=== PATIENT | female | born 1940 | race African-American/Black ===

== ENCOUNTER → 2022-09-04 10:24 | Outpatient (BNVA) | payer MEDICARE, SELFPAY | PROVIDERS: PCP Internal Medicine; Visit Provider Student in an Organized Health Care Education/Training Program | DX: M17.0 Bilateral primary osteoarthritis of knee (principal) | CPT/HCPCS: 20610; 99202 ==

== ENCOUNTER → 2022-12-05 10:20 | Outpatient (BNVA) | payer MEDICARE, SELFPAY | PROVIDERS: PCP Internal Medicine; Visit Provider Student in an Organized Health Care Education/Training Program | DX: M17.0 Bilateral primary osteoarthritis of knee (principal) | CPT/HCPCS: 20610; 99212 ==

== ENCOUNTER 2023-03-13 09:36 | Outpatient (AMB) | payer MEDICARE, SELFPAY ==
--- NOTE | 2023-03-13 09:39 | MHC.OFFVIS ---
Intake Vital Signs 03/13/23 09:41 Height 5 ft 2 in Weight 186 lb 4.65 oz BMI 34.1 BP 116/64 Blood Pressure Location Rt brachial Position Sitting Pulse 60 Pulse Source Pulse Oximeter Temp 97.2 F Temp Source Skin Pulse Oximetry (%) 99 Intake Visit Reasons: knee OA Intake Note: Pt seen today for OA follow up. C/o pain bl knees, left is worse. Endoscopy Technician Required: No Accompanied by: Self / Same As Patient Allergies amlodipine Allergy (Unknown, Verified 03/13/23 09:44) Unknown apixaban Allergy (Unknown, Verified 03/13/23 09:44) Unknown ferrous gluconate Allergy (Unknown, Verified 03/13/23 09:44) Unknown lisinopril Allergy (Unknown, Verified 03/13/23 09:44) unkown metoprolol Allergy (Unknown, Verified 03/13/23 09:44) unknown Medication List - Last Reconciled 03/13/23 by Joyce Noonan MD aspirin 325 mg PO DAILY carvedilol 12.5 mg PO BID cyproheptadine 4 mg PO Q6H PRN diclofenac sodium 1% (Voltaren Arthritis Pain) 2 grams topical QID fluticasone propionate 50 mcg/actuation (Flonase Allergy Relief) 1 spray intranasal BID furosemide (Lasix) 20 mg PO DAILY hydroxyzine HCl 25 mg PO TID PRN isosorbide mononitrate ER 60 mg PO DAILY naproxen 250 mg PO BID PRN spironolactone 25 mg PO DAILY HPI HPI Comments History of Present Illness Details 82-year-old female with bilateral knee osteoarthritis returns for follow-up. Patient stated that the left knee Kenalog injection last visit did not provide much relief. Continues to have pain in both knees, worse on the left. Sometimes he feels that her knees would give out on her. States that she is scheduled for knee x-rays tomorrow at her PCP's office. Initial history: This is an 82-year-old female with a past medical history of osteoarthritis who presents for evaluation of bilateral knee pain. Patient states she has had knee pain for many years. Initially the right knee was more affected but recently her left knee became more painful. She stated she used to see a petroleum blending plant operator years ago but does not remember the name. She has had 2 right knee intra-articular steroid injections over the last few years. Last injection was 1-2 years ago. She stated that the 1st injection gave her good relief not so much the 2nd injection. Today she is requesting bilateral knee intra-articular steroid injections. She states that her left knee sometimes gives out. Denies any other joint PFSH Medical History Afib Anemia CHF (congestive heart failure) Constipation Diarrhea DJD (degenerative joint disease) Elevated LFTs Esophageal reflux Hearing loss Hx of varicose veins Hyperlipemia Hypertension Internal hemorrhoid Myocardial infarct Obesity (BMI 35.0-39.9 without comorbidity) Tubular adenoma of colon Uterine cancer Vitamin D deficiency Surgical History H/O: hysterectomy History of esophagogastroduodenoscopy (EGD) Hx of colonoscopy Family History Mother Uterine cancer Father Lung cancer Sister Lung cancer Social History Alcohol intake: current Alcohol intake frequency: a few times a month Alcohol type: wine Patient Tobacco Use Status: Never used Tobacco Review of Systems Const All systems reviewed & are unremarkable except as noted in HPI and below Musc Reports arthralgias and Reports stiffness Physical Exam Vital Signs: Last Vital Signs Temp 97.2 F 03/13/23 09:41 Pulse 60 03/13/23 09:41 BP 116/64 03/13/23 09:41 Pulse Ox 99 03/13/23 09:41 BMI result Body Mass Index 34.1 Const General: cooperative, healthy appearing, comfortable and no acute distress Nutritional Appearance: obese Orientation/consciousness: patient oriented x3 Limitations: no limitations HEENT Head: Yes normocephalic and Yes atraumatic Resp Effort & Inspection: normal respiratory effort and able to speak in complete sentences Neuro General: patient oriented x3 Extrem Other: Bilateral knee crepitus and tenderness to palpation at the medial joint line Left knee warmth and crepitus, some pain with flexion and extension Negative Cornel's test bilaterally Results Reviewed Results Reviewed: Right knee x-ray 01/2022? Right knee, 6 views:? There is extremely severe medial compartment degeneration with extensive sclerosis, subchondral cyst formation and marginal spurring.? There is milder lateral and patellofemoral compartment degeneration.? There is no evidence of joint effusion, soft tissues are unremarkable Left knee 01/2022? There is mild medial and patellofemoral compartment degeneration.? The lateral compartment is intact.? There is some degeneration in the proximal articulation of the fibula with the tibia.? There is moderately large joint effusion.? There is are a few arterial calcifications posteriorly Assessment & Plan Assessment & Plan (1) Bilateral primary osteoarthritis of knee: Code(s): M17.0 - Bilateral primary osteoarthritis of knee Plan: This is an 82-year-old female with bilateral knee OA presents for follow-up. Patient continues to have bilateral knee pain worse on the left. Cortisone injections of both knees do not seem to help anymore. Patient is scheduled for knee x-rays tomorrow at her PCP's office. Will refer patient to orthopedics Orders: Referrals Orthopedics Referral M17.0 - Bilateral primary osteoarthritis of knee Coding Level of Care Code Est Pt Level 3 (53102) Diagnoses Bilateral primary osteoarthritis of knee M17.0
[2023-03-13 09:41] VITALS: BP 116/64; PULSE 60; TEMP 36.2; O2SAT 99; BMI 34.1
== END 2023-03-13 10:59 | disposition home or self-care (01) ==
PROVIDERS: PCP Internal Medicine; Visit Provider Student in an Organized Health Care Education/Training Program
DX: M17.0 Bilateral primary osteoarthritis of knee (principal)
CPT/HCPCS: 99213

== ENCOUNTER → 2023-03-13 09:36 | Outpatient (BNVA) | payer MEDICARE, SELFPAY | PROVIDERS: PCP Internal Medicine; Visit Provider Student in an Organized Health Care Education/Training Program | DX: M17.0 Bilateral primary osteoarthritis of knee (principal) | CPT/HCPCS: 99212 ==

== ENCOUNTER 2023-04-04 07:41 | Outpatient (REF) | payer MEDICARE, SELFPAY ==
--- NOTE | ~2023-04-04 | XR_ITS ---
EXAMINATION: XR BILATERAL KNEES CLINICAL INFORMATION: Reason for Exam M25.562 - Pain in left knee COMPARISON: None TECHNIQUE: 3 views of the bilateral knees FINDINGS: RIGHT KNEE: No acute fracture or dislocation. Advanced degenerative changes of the knee with near complete loss of medial compartment joint spaces and bulky medial compartment and small patellofemoral compartment osteophytes with quadriceps tendon enthesopathy. No joint effusion. Atherosclerotic vascular calcification. LEFT KNEE: No acute fracture or dislocation. Advanced degenerative changes in the with near complete loss of medial compartment joint space and medial and small patellofemoral compartment osteophytes. Moderate suprapatellar joint effusion. Atherosclerotic vascular calcification. XR/XR knee RT 3V IMPRESSION: * No acute osseous abnormality. * Advanced degenerative changes of the knee worst involving the medial compartments bilaterally. Moderate left suprapatellar joint effusion.
--- NOTE | ~2023-04-04 | XR_ITS ---
EXAMINATION: XR BILATERAL KNEES CLINICAL INFORMATION: Reason for Exam M25.562 - Pain in left knee COMPARISON: None TECHNIQUE: 3 views of the bilateral knees FINDINGS: RIGHT KNEE: No acute fracture or dislocation. Advanced degenerative changes of the knee with near complete loss of medial compartment joint spaces and bulky medial compartment and small patellofemoral compartment osteophytes with quadriceps tendon enthesopathy. No joint effusion. Atherosclerotic vascular calcification. LEFT KNEE: No acute fracture or dislocation. Advanced degenerative changes in the with near complete loss of medial compartment joint space and medial and small patellofemoral compartment osteophytes. Moderate suprapatellar joint effusion. Atherosclerotic vascular calcification. XR/XR knee LT 3V IMPRESSION: * No acute osseous abnormality. * Advanced degenerative changes of the knee worst involving the medial compartments bilaterally. Moderate left suprapatellar joint effusion.
== END 2023-04-04 07:42 | disposition home or self-care (01) ==
LOC: HO.HOSX 07:41
PROVIDERS: Visit Provider Orthopaedic Surgery
DX: M17.0 Bilateral primary osteoarthritis of knee (principal)
CPT/HCPCS: 73562; 99202

== ENCOUNTER 2023-04-04 10:55 | Outpatient (AMB) | payer MEDICARE, SELFPAY ==
[2023-04-04 11:11] VITALS: BMI 33.3
--- NOTE | 2023-04-04 11:11 | A.OFFVIS_ITS ---
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 States pain has been presents for 3-4 years and gotten has worsen. Patient states left knee is worse than right. Patient reports left knee gives out, swells and occasional numbness or tingling. Patient has tried injections with no relief in left knee and little relief in the right knee. Patient last injection of left knee was 12/05/22 and bilateral on 09/04/22. The patient has done physical therapy for 12 weeks over the last 6 months which aggravated her pain. She has tried Tylenol and anti-inflammatory medicines which gave her minimal relief. The patient has difficulty walking even short distances because of her pain. At this point her left knee pain is interfering with her activities of daily living and her ability to sleep well through the night. Allergies amlodipine Allergy (Unknown, Verified 04/04/23 11:11) Unknown apixaban Allergy (Unknown, Verified 04/04/23 11:11) Unknown ferrous gluconate Allergy (Unknown, Verified 04/04/23 11:11) Unknown lisinopril Allergy (Unknown, Verified 04/04/23 11:11) unkown metoprolol Allergy (Unknown, Verified 04/04/23 11:11) unknown Medication List - Last Reviewed 04/04/23 by CHAU Sanches aspirin 325 mg PO DAILY carvedilol 12.5 mg PO BID cyproheptadine 4 mg PO Q6H PRN diclofenac sodium 1% (Voltaren Arthritis Pain) 2 grams topical QID fluticasone propionate 50 mcg/actuation (Flonase Allergy Relief) 1 spray intranasal BID furosemide (Lasix) 20 mg PO DAILY hydroxyzine HCl 25 mg PO TID PRN isosorbide mononitrate ER 60 mg PO DAILY naproxen 250 mg PO BID PRN spironolactone 25 mg PO DAILY PFSH Medical History Afib Anemia CHF (congestive heart failure) Constipation Diarrhea DJD (degenerative joint disease) Elevated LFTs Esophageal reflux Hearing loss Hx of varicose veins Hyperlipemia Hypertension Internal hemorrhoid Myocardial infarct Obesity (BMI 35.0-39.9 without comorbidity) Tubular adenoma of colon Uterine cancer Vitamin D deficiency Surgical History H/O: hysterectomy History of esophagogastroduodenoscopy (EGD) Hx of colonoscopy Family History Mother Uterine cancer Father Lung cancer Sister Lung cancer Social History (Updated 04/04/23 @ 11:19 by Sue Lacey [facility]) Alcohol intake: current Alcohol intake frequency: a few times a month Alcohol type: wine Patient Tobacco Use Status: Never used Tobacco Current occupational status: retired Physical Exam Vital Signs: BMI result Body Mass Index 33.3 Const Other: Well-nourished well-developed very friendly female awake alert and oriented x3 in no acute distress Extrem Other: Bilateral lower extremity examination shows good capillary refill, no skin lesions noted, normal sensation light touch Bilateral knee minimal effusion, palpable crepitus range of motion, pain with motion, range of motion from -3 degrees to 115 degrees, no instability Results Reviewed Results Reviewed: X-rays of the patient's bilateral knees show severe joint space narrowing with grade 4 [id number] arthritis, subchondral sclerosis, osteophyte formation, no acute bony abnormalities Assessment & Plan Assessment & Plan (1) Bilateral primary osteoarthritis of knee: Code(s): M17.0 - Bilateral primary osteoarthritis of knee Plan Ms. Garcia presents with progressively worsening bilateral knee pains, left greater than right, due to end-stage degenerative joint disease. I had a lengthy discussion with the patient regarding the treatment options. This point she has failed continued non operative treatments. The risks and benefits of left total knee replacement surgery were discussed at length with the patient. We had a discussion regarding implant in bearing options. We had a detailed discussion of the advantages and limitations of the specific implant designs, materials and bearing surfaces. All questions were answered to the patient's satisfaction. The patient wishes to proceed with surgery. Because the patient's symptoms are severe and intractable we will schedule surgery for as soon as possible. Coronavirus precautions will be taken. I will see the patient back 1 week prior to her surgery to answer any final questions that she might have. Feel free to call me at any time should questions regarding her orthopedic management arise. Thank you very much for asking me to see this very friendly patient. I spent 22 minutes in reviewing the patient's records and imaging studies, seeing the patient and documenting in the medical record. Orders: Orders XR knee LT 3V Today M25.562 - Pain in left knee XR knee RT 3V Today M25.561 - Pain in right knee Coding Level of Care Code New Pt Level 2 (80349) Diagnoses Bilateral primary osteoarthritis of knee M17.0
== END 2023-04-04 11:46 | disposition home or self-care (01) ==
PROVIDERS: PCP Internal Medicine; Visit Provider Orthopaedic Surgery
DX: M17.0 Bilateral primary osteoarthritis of knee (principal)
CPT/HCPCS: 99202

== ENCOUNTER → 2023-04-24 08:47 | Outpatient (BNVA) | payer MEDICARE, SELFPAY | PROVIDERS: PCP Internal Medicine; Visit Provider Orthopaedic Surgery ==

== ENCOUNTER 2023-05-23 09:47 | Outpatient (AMB) | payer MEDICARE, SELFPAY ==
--- NOTE | 2023-05-23 10:27 | A.OFFVIS_ITS ---
Intake Intake Visit Reasons: Preop- LT TKA 05/27/23 Intake Note: Hannah 82 yr old female presents today for evaluation of Bilateral osteoarthritis knee pain. States pain has been presents for 3-4 years and gotten has worsen. Patient states left knee is worse than right. Patient reports left knee gives out, swells and occasional numbness or tingling. Patient has tried injections with no relief in left knee and little relief in the right knee. Patient last injection of left knee was 12/05/22 and bilateral on 09/04/22. The patient has done physical therapy for 12 weeks over the last 6 months which aggravated her pain. She has tried Tylenol and anti-inflammatory medicines which gave her minimal relief. The patient has difficulty walking even short distances because of her pain. At this point her left knee pain is interfering with her activities of daily living and her ability to sleep well through the night. Allergies amlodipine Allergy (Unknown, Verified 05/23/23 10:27) Unknown apixaban Allergy (Unknown, Verified 05/23/23 10:27) Unknown ferrous gluconate Allergy (Unknown, Verified 05/23/23 10:27) Unknown lisinopril Allergy (Unknown, Verified 05/23/23 10:27) Swelling metoprolol Allergy (Unknown, Verified 05/23/23 10:27) unknown broccoli Allergy (Verified 05/23/23 10:27) Constipation tomato Allergy (Verified 05/23/23 10:27) Itching Medication List - Last Reconciled 05/23/23 by Thomas Oconnell MD aspirin 325 mg PO DAILY carvedilol 12.5 mg PO BID furosemide (Lasix) 20 mg PO DAILY isosorbide mononitrate ER 60 mg PO DAILY spironolactone 25 mg PO DAILY walker Folding front wheeled walker [facility] Medical History Hx of transfusion of packed red blood cells Hx of varicose veins Internal hemorrhoid DJD (degenerative joint disease) Vitamin D deficiency Esophageal reflux Hearing loss Constipation Hyperlipemia Elevated LFTs Uterine cancer Myocardial infarct Tubular adenoma of colon Diarrhea Anemia Obesity (BMI 35.0-39.9 without comorbidity) Afib Hypertension CHF (congestive heart failure) Surgical History History of esophagogastroduodenoscopy (EGD) Hx of colonoscopy H/O: hysterectomy Family History Mother Uterine cancer Father Lung cancer Sister Lung cancer Social History Are you a primary district manager primary care sales to a significant other at home: No Do you presently have visiting nurse or other home services: Yes (PCT) Alcohol intake: current Alcohol intake frequency: holidays/special occasions only Alcohol type: wine Patient Tobacco Use Status: Never used Tobacco Current occupational status: retired Physical Exam Const Other: Well-nourished well-developed very friendly female awake alert and oriented x3 in no acute distress Lungs clear to auscultation bilaterally with symmetric expansion Cardiovascular exam regular rate and rhythm Abdominal exam is soft nontender nondistended Extrem Other: Bilateral lower extremity examination shows good capillary refill, no skin lesions noted, normal sensation light touch Left knee examination shows a minimal effusion, palpable crepitus with range of motion, pain with range of motion, range of motion from -3 degrees to 115 degrees, no instability Results Reviewed Results Reviewed: X-rays of the patient's left knee show severe joint space narrowing with grade 4 [id number] arthritis, subchondral sclerosis, osteophyte formation, no acute bony abnormalities Assessment & Plan Assessment & Plan (1) Arthritis of left knee: Code(s): M17.12 - Unilateral primary osteoarthritis, left knee Plan: Ms. Garcia presents with left knee pain due to end-stage degenerative joint disease. I had a lengthy discussion with the patient regarding the treatment options. At this point she has failed continued non operative treatments. The risks and benefits of left total knee replacement surgery were discussed at length with the patient. Patient wishes to proceed with surgery. donor services manager will be consulted following her surgery for home physical therapy and nursing versus possible inpatient rehabilitation. I will see the patient back 2-3 weeks following her surgery for her 1st postoperative appointment. The patient will follow-up as instructed. Feel free to call me at any time should questions regarding her orthopedic management arise. I spent 22 minutes in reviewing the patient's records and imaging studies, seeing the patient and documenting in the medical record. Coding Level of Care Code Est Pt Level 2 (38551) Diagnoses Arthritis of left knee M17.12
== END 2023-05-23 10:48 | disposition home or self-care (01) ==
PROVIDERS: PCP Internal Medicine; Visit Provider Orthopaedic Surgery
DX: M17.12 Unilateral primary osteoarthritis, left knee (principal)
CPT/HCPCS: 99212

== ENCOUNTER → 2023-05-23 09:47 | Outpatient (BNVA) | payer MEDICARE, SELFPAY | PROVIDERS: PCP Internal Medicine; Visit Provider Orthopaedic Surgery | DX: M17.12 Unilateral primary osteoarthritis, left knee (principal) | CPT/HCPCS: 99212 ==

== ENCOUNTER 2023-05-27 06:06 | Inpatient (IN) | payer OTHER, SELFPAY ==
[2023-05-22 11:43] VITALS: BP 141/87; PULSE 59; RESP 16; O2SAT 98; BMI 33.7
--- NOTE | 2023-05-22 12:24 | P.CONAN_ITS ---
Documented by User: Jaylyn Garza NP 05/24/23 08:44 HPI - Anesthesia Eval Consult details Narrative: 82yo F for Left Knee Replacement Total Medically cleared Cardiac cleared (Office visit 01/2023) No recent illness No CP/SOB with minimal activity r/t pain CHF - no periph edema, no orthopnea Afib - aspirin only PMFSH Active Problems Active Problems: All Active Problems (Updated 05/22/23 @ 11:30 by Jill Denton RN) Left knee pain (Acute) Right knee pain (Acute) Bilateral primary osteoarthritis of knee (Acute) Past Medical History Medical History Hx of transfusion of packed red blood cells Hx of varicose veins Internal hemorrhoid DJD (degenerative joint disease) Vitamin D deficiency Esophageal reflux Hearing loss Constipation Hyperlipemia Elevated LFTs Uterine cancer Myocardial infarct Tubular adenoma of colon Diarrhea Anemia Obesity (BMI 35.0-39.9 without comorbidity) Afib Hypertension CHF (congestive heart failure) Family History Family History Mother Uterine cancer Father Lung cancer Sister Lung cancer Family history of problems with anesthesia: No Surgical History Surgical History History of esophagogastroduodenoscopy (EGD) Hx of colonoscopy H/O: hysterectomy History of Problems with Anesthesia: No Social History Social History Are you a primary health care marketing manager to a significant other at home: No Do you presently have visiting nurse or other home services: Yes (PCT) Alcohol intake: current Alcohol intake frequency: holidays/special occasions only Alcohol type: wine Patient Tobacco Use Status: Never used Tobacco Use of substances other than those prescribed or required for medical reasons: No Have you been hit, kicked, punched, or otherwise hurt by someone within the past year? If so, by whom?: No Are you DNR?: No Advance Directives: No Advance Directives Information Provided: No Advance Directives on File: No Recently lost weight without trying: No Eating poorly because of decreased appetite: No Nutrition Risks: No Nutritional Risk Patient : No : No Poor oral hygiene: No Current occupational status: retired Meds Allergies Allergy/AdvReac Type Severity Reaction Status Date / Time amlodipine Allergy Unknown Unknown Verified 05/23/23 10:27 apixaban Allergy Unknown Unknown Verified 05/23/23 10:27 ferrous gluconate Allergy Unknown Unknown Verified 05/23/23 10:27 lisinopril Allergy Unknown Swelling Verified 05/23/23 10:27 metoprolol Allergy Unknown unknown Verified 05/23/23 10:27 broccoli Allergy Constipatio Verified 05/23/23 10:27 n tomato Allergy Itching Verified 05/23/23 10:27 Active Medications: Current Medications Cefazolin Sodium/Dextrose (Ancef) 2 gm in 50 mls @ 100 mls/hr IV PREOP ONE Stop: 05/27/23 03:38 Home Medications Medication Instructions Recorded Confirmed Last Taken Type aspirin 325 mg tablet 325 mg PO DAILY 08/15/22 05/23/23 05/19/23 History carvedilol 12.5 mg tablet 12.5 mg PO BID 08/15/22 05/23/23 05/27/23 History furosemide 40 mg tablet (Lasix) 20 mg PO DAILY 08/15/22 05/23/23 05/26/23 History isosorbide mononitrate 60 mg 60 mg PO DAILY 08/15/22 05/23/23 05/27/23 History tablet,extended release 24 hr spironolactone 25 mg tablet 25 mg PO DAILY 08/15/22 05/23/23 05/26/23 History Exam Exam Date and Time: May 22, 2023 1224 Height,Weight and Vital Signs: Height 5 ft 2 in Weight 83.461 kg Last Vital Signs Pulse 59 05/22/23 11:43 Resp 16 05/22/23 11:43 BP 141/87 H 05/22/23 11:43 Pulse Ox 98 05/22/23 11:43 O2 Del Method Room Air 05/22/23 11:43 Pertinent Lab Results Pertinent Lab Results: Labs 02/2023 WBC 6.5 Hgb 10.9 (L) Hct 35.1 Plt 267 K 4.6 Na 140 CO2 27 Cl 108 BUN 18 Creat 1.33 (H) Narrative Narrative: EKG 01/2023 NSR @ 60 LAD Volt criteria for LVH T wave abn, consider lateral ischemia ECHO 12/2022 LV size is nml. LV wall thickness is mildly increased. LV systolic function is nml. LVEF 60-65% No definite regional WMA Unable to assess diastolic function d/t afib LV filling pressures are indeterminate Aortic valve is trileaflet and nml in structure and function. No aortic stenosis or insufficiency Aortic root is nml in size Mild dilating of asc aorta @ 4.1cm RV size and function appears grossly nml No pericardial effusion Airway Mallampati Class: II TM Dist: >3cm Neck ROM: Full Loose/Missing/Broken Teeth: No Heart: RRR Lungs: CTAB Assessment and Plan Assessment Anesthesia Assessment: Anesthesia Plan Discussed and PAT Visit Final Anesthetic Review Family History of Problems with Anesthesia: No History of Problems with Anesthesia: No Documented by User: Chastity March MD 05/27/23 08:25 [facility] Past Medical History Medical History Hx of transfusion of packed red blood cells Hx of varicose veins Internal hemorrhoid DJD (degenerative joint disease) Vitamin D deficiency Esophageal reflux Hearing loss Constipation Hyperlipemia Elevated LFTs Uterine cancer Myocardial infarct Tubular adenoma of colon Diarrhea Anemia Obesity (BMI 35.0-39.9 without comorbidity) Afib Hypertension CHF (congestive heart failure) Family History Family History Mother Uterine cancer Father Lung cancer Sister Lung cancer Surgical History Surgical History History of esophagogastroduodenoscopy (EGD) Hx of colonoscopy H/O: hysterectomy Social History Social History Are you a primary health care marketing manager to a significant other at home: No Do you presently have visiting nurse or other home services: Yes (PCT) Alcohol intake: current Alcohol intake frequency: holidays/special occasions only Alcohol type: wine Patient Tobacco Use Status: Never used Tobacco Use of substances other than those prescribed or required for medical reasons: No Have you been hit, kicked, punched, or otherwise hurt by someone within the past year? If so, by whom?: No Are you DNR?: No Advance Directives: No Advance Directives Information Provided: No Advance Directives on File: No Recently lost weight without trying: No Eating poorly because of decreased appetite: No Nutrition Risks: No Nutritional Risk Patient : No : No Poor oral hygiene: No Current occupational status: retired Meds Allergies Allergy/AdvReac Type Severity Reaction Status Date / Time amlodipine Allergy Unknown Unknown Verified 05/23/23 10:27 apixaban Allergy Unknown Unknown Verified 05/23/23 10:27 ferrous gluconate Allergy Unknown Unknown Verified 05/23/23 10:27 lisinopril Allergy Unknown Swelling Verified 05/23/23 10:27 metoprolol Allergy Unknown unknown Verified 05/23/23 10:27 broccoli Allergy Constipatio Verified 05/23/23 10:27 n tomato Allergy Itching Verified 05/23/23 10:27 Home Medications Medication Instructions Recorded Confirmed Last Taken Type aspirin 325 mg tablet 325 mg PO DAILY 08/15/22 05/23/23 05/19/23 History carvedilol 12.5 mg tablet 12.5 mg PO BID 08/15/22 05/23/23 05/27/23 History furosemide 40 mg tablet (Lasix) 20 mg PO DAILY 08/15/22 05/23/23 05/26/23 History isosorbide mononitrate 60 mg 60 mg PO DAILY 08/15/22 05/23/23 05/27/23 History tablet,extended release 24 hr spironolactone 25 mg tablet 25 mg PO DAILY 08/15/22 05/23/23 05/26/23 History Assessment and Plan Assessment Anesthesia Assessment: Chart Reviewed Final Anesthetic Review ASA Class: II Final Preanesthetic Review: No Changes in Pt Med Stat, Meds/Allgs Chart Reviewed, Consent Obtained/Reviewed and Anes Risks/Benef Reviewed Patient Risk: Low Procedure Risk: Intermediate Anesthetic Plan Anesthetic Plan: Spinal and Regional Block Disposition: Standard PACU
[2023-05-22 14:25] LABS: MRSA Nasal PCR NEGATIVE (Negative); SA Nasal PCR NEGATIVE (Negative)
[2023-05-27] VITALS (12 sets, daily range): BP systolic 87–152; BP diastolic 49–85; PULSE 46–69; RESP 16–20; TEMP 36.6–36.9; O2SAT 96–98; BMI 33.6
--- NOTE | ~2023-05-27 | XR_ITS ---
EXAMINATION: XR KNEE, LEFT CLINICAL INFORMATION: Status post left knee arthroplasty. COMPARISON: Left knee radiographs dated 04/04/2023. TECHNIQUE: AP and lateral views of the left knee. FINDINGS: Prosthetic components of the total knee arthroplasty are appropriately aligned. No periprosthetic fracture. Gas from recent surgery is present in the joint and surrounding soft tissues. A joint effusion is present. XR/XR knee LT 2V IMPRESSION: Appropriate alignment of the left total knee arthroplasty.
--- NOTE | 2023-05-27 10:29 | P.BOP_ITS ---
Brief Operative Note Date of Service: 05/27/23 Pre-op diagnosis: Left knee degenerative joint disease Post-op diagnosis: same Procedure: Left total knee arthroplasty Implants: Andressa Triathlon cemented posterior stabilized total knee arthroplasty with a femoral component size 2 left, tibial component size 2, polyethylene liner size 2 with 10 mm of thickness, a symmetric patellar component size 29 with 8 mm of thickness Surgeon: Thomas Oconnell MD Anesthesia: spinal Was an Technology And Engineering Teacher used for this Procedure?: Yes Technology And Engineering Teacher: Shania Key Estimated blood loss (mL): 200 Tourniquet time (min): 0 Condition: stable Disposition: PACU
--- NOTE | 2023-05-27 10:31 | P.OP_ITS ---
Operative Note Operative Note Date of Service: 05/27/23 Narrative: After the patient was identified as Sahra Garcia and their left knee was initialed by myself the patient was brought to the holding area where a left leg nerve block was performed by the anesthesiologist in routine fashion. The patient was then brought to the operating room where conscious sedation and spinal anesthesia were performed by the anesthesiologist in routine fashion The patient was given 2 g of IV Ancef preoperatively for infection prophylaxis. The patient's left lower extremity was prepped and draped in sterile fashion. A formal time-out was completed. The patient's left knee was placed onto a small bump to produce 30? of knee flexion during exposure. A #10 scalpel blade was used to make a midline incision extending 1 handbreadth proximal and distal to the patella. A second #10 scalpel blade was used to dissect the subcutaneous tissues down to the extensor mechanism. The subcutaneous flaps were maintained as thick as possible. A medial parapatellar arthrotomy was then performed using a #10 scalpel blade. The arthrotomy was begun just medial to the patellar tendon. The arthrotomy was continued 1 cm medial to the patella and then 5 mm into the medial aspect of the quadriceps tendon. The infrapatellar fat pad was partially excised to help with exposure. The soft tissue retinaculum was raised one-half of the way around the medial aspect of the proximal tibia. The patella was everted and the knee was flexed to 90?. There was no injury to the patellar tendon or its insertion onto the tibial tubercle. A drill bit was introduced into the distal aspect of the femur with a starting point 1 cm anterior to the origin of the posterior cruciate ligament. The intramedullary alignment zana was put into place. The distal alignment guide was set for a 5 degree valgus cut. The distal cutting block was put into place and was held with 4 pins. The intramedullary alignment zana was removed. Soft tissues were retracted in the distal femoral cut was made using a sagittal saw. The distal aspect of the femur measured to be a size 2 left component. Two drill holes were placed into the distal aspect of the femur marking 3? of external rotation. The distal cutting block was impacted into place and was held with 2 pins. Soft tissues were retracted and the 4 distal femoral cuts were made using a sagittal saw. Final notching and drilling of the distal aspect of the femur were performed in routine fashion. The trial femoral component was impacted into place. The knee was taken through a full range of motion. The patella tracked well. The patella was everted and the knee was flexed to 90?. The trial component was removed and our attention was directed to the proximal tibia. The medial and lateral menisci were removed using a #10 scalpel blade. A small rim of the medial meniscus was left intact to help prevent injury to the medial collateral ligament. A drill bit was then introduced into the proximal tibia with a starting point midway from medial to lateral and one-third of the way posteriorly. The intramedullary alignment zana was put into place. The proximal tibial cutting guide was placed over the alignment zana in line with the 2nd toe. The guide was held in place using 3 pins. The intramedullary alignment zana was removed. Soft tissues were retracted and the proximal tibial cut was made using a sagittal saw. The proximal tibia measured to be a size 2 component. The tibial tray was put into place with a 10 mm liner. The femoral component was impacted into place. The knee was taken through a full range of motion. There was full flexion and full extension. There was no instability with varus or valgus stress testing with the knee in flexion or extension. The patella tracked well with no medially directed force. The rotation of the tibial tray was marked using electrocautery with the knee in extension. The patella was everted and the knee was flexed to 90?. All trial components were removed. The tibial tray was placed onto the proximal tibia in line with the electrocautery aguilar. The tray was held in place using 3 pins. Final broaching of the proximal tibia was performed in routine fashion. The trial liner and trial femoral component were put into place. The knee was brought into extension and our attention was directed to the patella. The patella measured 25 mm in thickness. The patellar resection guide was set for a 10 mm resection. Soft tissues were retracted and the patella cut was made using a sagittal saw. The remaining patella measured 15 mm in thickness. The undersurface of the patella was richard ured to be a size 29 symmetric component. Three drill holes were placed into the undersurface of the patella in routine fashion. The trial component was put into place. The knee was taken through a full range of motion. The patella tracked well. The patella was everted and the knee was flexed to 90?. All trial components were removed. The knee was once again brought into extension and placed onto a small bump. The knee joint was irrigated with copious amounts of normal saline solution via pulse lavage while the cement was mixed. The patella was everted and the knee was flexed to 90?. A small amount of cement was placed along the posterior aspects of the tibial and femoral components. Cement was then pressurized into the proximal tibia. The tibial component was impacted into place. Any excess cement was removed. The polyethylene liner was then impacted into place. Cement was then pressurized into the distal aspect of the femur. A small amount of cement was placed into the intramedullary canal to help reduce bleeding. The femoral component was impacted into place. Any excess cement was removed. The knee was then brought into extension. Cement was pressurized into the undersurface of the patella. The patellar component was put into place and was held with a patella clamp. Any excess cement was removed. Once the cement had hardened the patellar clamp was removed. The knee was taken through a full range of motion. There was full flexion and extension. There was no instability with varus or valgus stress testing with the knee in flexion or extension. The patella tracked well with no medially directed force. The knee joint was irrigated with copious amounts of normal saline solution via pulse lavage. Any significant bleeding vessels were coagulated. The patient's left knee was placed onto a small bump. The arthrotomy was closed with #2 Ethibond [id number] interrupted suture as well as #1 Vicryl [id number] interrupted suture. The wound was once again irrigated. The subcutaneous tissues were closed with 0 Vicryl and 2-0 Vicryl interrupted sutures. The skin was closed with skin дмитрий. Dry sterile dressing and Derek bandages were placed over the patient's left knee. The patient was awake and alert. The patient was transferred to the recovery room in stable condition.
--- NOTE | 2023-05-27 12:36 | PHA.MEDREC ---
Pharmacy Consult ? Medication Reconciliation Pharmacy has reviewed the medication reconciliation.
--- NOTE | 2023-05-27 13:01 | HO.PM.IMCN ---
History of Present Illness Data of Consult Service Date: 05/27/23 Primary Care Provider: Fco Means MD [facility] Reason for consult: Medical management Patient is an 82-year-old female with a PMH significant for osteoarthritis of bilateral knees, CHF unspecified, HTN, and hx of uterine cancer who was admitted to the hospital under orthopedics for left TKA. POD0. Pt currently has no acute medical complaints. Denies any left leg or knee pain, numbness, or tingling. Denies chest pain/pressure, palpitations. No N/V, fever, chills, abdominal pain. Pt has a remote hx of uterine cancer 15 years ago. Patient was also diagnosed with heart failure 5-6 years ago. Patient has been taking diuretics since then with no additional hospitalizations for CHF. Denies SOB, cough. No lower leg edema. Vital signs stable. Review of Systems Review of Systems: Patient denies left leg early pain Has no acute medical concerns at this time [facility] Medical History Hx of transfusion of packed red blood cells Hx of varicose veins Internal hemorrhoid DJD (degenerative joint disease) Vitamin D deficiency Esophageal reflux Hearing loss Constipation Hyperlipemia Elevated LFTs Uterine cancer Myocardial infarct Tubular adenoma of colon Diarrhea Anemia Obesity (BMI 35.0-39.9 without comorbidity) Afib Hypertension CHF (congestive heart failure) Family History Mother Uterine cancer Father Lung cancer Sister Lung cancer Surgical History History of esophagogastroduodenoscopy (EGD) Hx of colonoscopy H/O: hysterectomy Social History Household Members: Spouse Housing: House Are you a primary day care home provider to a significant other at home: No Do you presently have visiting nurse or other home services: Yes ([employer] a few times a week) Alcohol intake: current Alcohol intake frequency: holidays/special occasions only Alcohol type: wine Patient Tobacco Use Status: Never used Tobacco Use of substances other than those prescribed or required for medical reasons: No Have you been hit, kicked, punched, or otherwise hurt by someone within the past year? If so, by whom?: No Do you feel safe in your current relationship?: Yes Is there a partner from a previous relationship who is making you feel unsafe now?: No Are you made to feel afraid or neglected: No Are you DNR?: No Advance Directives: No Advance Directives Information Provided: No Advance Directives on File: No Do you have thoughts of harming others: None Do you have a plan to hurt others: No Plan Recently lost weight without trying: No Eating poorly because of decreased appetite: No Nutrition Risks: No Nutritional Risk Patient : No : No Poor oral hygiene: No Current occupational status: retired Meds Allergies Allergy/AdvReac Type Severity Reaction Status Date / Time amlodipine Allergy Unknown Unknown Verified 05/23/23 10:27 apixaban Allergy Unknown Unknown Verified 05/23/23 10:27 ferrous gluconate Allergy Unknown Unknown Verified 05/23/23 10:27 lisinopril Allergy Unknown Swelling Verified 05/23/23 10:27 metoprolol Allergy Unknown unknown Verified 05/23/23 10:27 broccoli Allergy Constipatio Verified 05/23/23 10:27 n tomato Allergy Itching Verified 05/23/23 10:27 Active Medications: Current Medications Acetaminophen (Acetaminophen 325 Mg Tablet) 650 mg PO Q6H PRN PRN Reason: Pain, Mild (Pain Scale 1-3) Aspirin (Aspirin 325 Mg Tablet) 325 mg PO Q12H [facility] Carvedilol (Carvedilol 12.5 Mg Tablet) 12.5 mg PO BID [facility]; Protocol Celecoxib (Celecoxib 200 Mg Capsule) 200 mg PO BID [facility] Docusate Sodium (Docusate Sodium 100 Mg Capsule) 100 mg PO BID [facility] Furosemide (Furosemide 20 Mg Tablet) 20 mg PO DAILY [facility]; Protocol Hydromorphone HCl (Hydromorphone Hcl 0.5 Mg/0.5 Ml Syringe) 0.25 mg IVPUSH Q4H PRN; Protocol PRN Reason: Pain, Severe (Pain Scale 7-10) Hydromorphone HCl (Hydromorphone Hcl 0.5 Mg/0.5 Ml Syringe) 0.5 mg IVPUSH Q4H PRN; Protocol PRN Reason: Pain, Severe (Pain Scale 7-10) Lactated Ringer's (Lr) 1,000 mls @ 100 mls/hr IVCONT .Q10H [facility] Last Admin: 05/27/23 12:30 Dose: Not Given Lactated Ringer's (Lr) 1,000 mls @ 100 mls/hr IVCONT .Q10H [facility] Cefazolin Sodium/Dextrose (Ancef) 2 gm in 50 mls @ 100 mls/hr IV Q8H [facility] Stop: 05/28/23 13:59 Isosorbide Mononitrate (Isosorbide Mononitrate 60 Mg Tab.Er.24h) 60 mg PO DAILY [facility]; Protocol Ondansetron HCl (Ondansetron Hcl 4 Mg/2 Ml Vial) 4 mg IVPUSH Q8H PRN PRN Reason: Nausea and Vomiting Oxycodone HCl (Oxycodone Hcl Immed Release 5 Mg Tablet) 5 mg PO Q4H PRN PRN Reason: Pain, Moderate(Pain Scale 4-6) Oxycodone HCl (Oxycodone Hcl Immed Release 5 Mg Tablet) 10 mg PO Q4H PRN PRN Reason: Pain, Moderate(Pain Scale 4-6) Sodium Chloride (0.9 % Sodium Chloride Flush 3 Ml Syringe) 3 ml IVFLUSH QSHIFT [facility] Spironolactone (Spironolactone 25 Mg Tablet) 25 mg PO DAILY [facility]; Protocol Home Medications Medication Instructions Recorded Confirmed Last Taken Type aspirin 325 mg tablet 325 mg PO DAILY 08/15/22 05/23/23 05/19/23 History carvedilol 12.5 mg tablet 12.5 mg PO BID 08/15/22 05/23/23 05/27/23 History furosemide 40 mg tablet (Lasix) 20 mg PO DAILY 08/15/22 05/23/23 05/26/23 History isosorbide mononitrate 60 mg 60 mg PO DAILY 08/15/22 05/23/23 05/27/23 History tablet,extended release 24 hr spironolactone 25 mg tablet 25 mg PO DAILY 08/15/22 05/23/23 05/26/23 History Physical Exam Vital Signs and Narrative: Vital Signs: Last Vital Signs Temp 97.8 F 05/27/23 12:29 Pulse 52 05/27/23 12:29 Resp 18 05/27/23 12:29 BP 109/62 05/27/23 12:29 Pulse Ox 98 05/27/23 12:29 O2 Del Method Room Air 10/02/23 12:29 BMI result Body Mass Index 33.6 General: AOx3, no acute distress Resp: CTA bilaterally CVS: S1, S2, RRR GI: +BS, NT, no distention Skin: No rash Neuro: Cranial nerves II-XII grossly intact bilaterally. Motor grossly intact bilaterally Extremities: No edema. Left knee wrapped in clean dressing. Psych: Appropriate affect Results Imaging Radiologist's Impressions: Impressions Knee X-Ray 05/27/23 11:02 IMPRESSION: Appropriate alignment of the left total knee arthroplasty. Assessment and Plan (1) S/P total knee arthroplasty: Qualifiers: Laterality: left Qualified Code(s): Z96.652 - Presence of left artificial knee joint Status: Acute Plan Patient is an 82-year-old female with a PMH significant for osteoarthritis of bilateral knees, CHF unspecified, HTN, and hx of uterine cancer who was admitted to the hospital under orthopedics for left TKA. POD0. Pt currently has no acute medical complaints. Left TKA Plan as per orthopedics CHF, unspecified Not in acute exacerbation No acute exacerbation in past 5-6 years Continue furosemide, spironolactone, isosorbide mononitrate HTN Acceptable control on current therapies Continue carvedilol Thank you for allowing us to participate in the care of this patient. Signing off at this time. Please let us know if there are any acute complaints or questions. Time Spent With Patient Time: Total time managing care of this patient today ____ minutes.
[2023-05-27] MEDS: Lactated Ringers 1,000 ML 100 ML IVCONT (13:27)
[2023-05-27] MEDS: ceFAZolin Sodium/Dextrose,Iso 2 GM/50 ML PIGGYBACK IV ×2 (13:27→20:46)
[2023-05-27] MEDS: HYDROmorphone HCl 0.5 MG/0.5 ML SYRINGE 0.25 MG IVPUSH (16:38)
[2023-05-27] MEDS: Aspirin 325 MG TABLET PO (18:25)
[2023-05-27] MEDS: Celecoxib 200 MG CAPSULE PO (20:45)
[2023-05-27] MEDS: Docusate Sodium 100 MG CAPSULE PO (20:45)
[2023-05-27] MEDS: carvediloL 12.5 MG TABLET PO (20:45)
[2023-05-27] MEDS: HYDROmorphone HCl 0.5 MG/0.5 ML SYRINGE IVPUSH (20:46)
[2023-05-28] MEDS: Lactated Ringers 1,000 ML 100 ML IVCONT ×3 (00:10→17:09)
[2023-05-28] MEDS: oxyCODONE HCl Immed Release 5 MG TABLET PO (01:54)
[2023-05-28 04:00] VITALS: BP 162/84; PULSE 66; RESP 16; TEMP 36.6; O2SAT 96
[2023-05-28] MEDS: Aspirin 325 MG TABLET PO ×2 (06:17→17:12)
[2023-05-28] MEDS: oxyCODONE HCl Immed Release 5 MG TABLET 10 MG PO ×2 (06:18→14:50)
[2023-05-28] MEDS: ceFAZolin Sodium/Dextrose,Iso 2 GM/50 ML PIGGYBACK IV (06:19)
[2023-05-28 06:45] LABS: MANUAL DIFF FLAG NO
[2023-05-28 07:07] LABS: Basophils Percent Auto 0.1 % (0-2); Eosinophils Absolute Auto 0.1 X10*3/uL (0.0-0.4); Eosinophils Percent Auto 1.3 % (0-4); Hematocrit 28.6 % (37.0-47.0); Hemoglobin 9.3 g/dl (12.0-16.0); Imm Gran Abs Auto 0.06 X10*3/uL (0.00-0.03); Imm Gran Pct Auto 0.6 % (0.0-0.4); Lymphocytes Absolute Auto 1.9 X10*3/uL (1.2-4.9); Lymphocytes Percent Auto 17.7 % (20-40); Mean Corpuscular HGB Conc 32.5 g/dl (31.0-35.0); Mean Corpuscular Hemoglobin 31.4 pg (27.0-33.0); Mean Corpuscular Volume 96.6 fL (80.0-98.0); Mean Platelet Volume 11.3 fL (9.4-12.3); Monocytes Absolute Auto 1.5 X10*3/uL (0.1-1.2); Monocytes Percent Auto 13.8 % (2-11); Neutrophils Percent Auto 66.5 % (45-73); Platelet Count 213 X10*3/uL (160-400); Red Blood Count 2.96 X10*6/uL (4.20-5.50); Red Cell Distribution Width 11.8 % (11.0-16.0); White Blood Count 10.5 X10*3/uL (4.8-10.8)
[2023-05-28 07:12] LABS: Anion Gap 11 (12-20); Blood Urea Nitrogen 19 mg/dL (9-16); Carbon Dioxide 21 mmol/L (22-29); Chloride 106 mmol/L (96-108); Creatinine Clr Calc Pharmacy 40.1; Estimated Glomerular Filt Rate 48; Glucose Fasting 140 mg/dL (60-99); Potassium 4.2 mmol/L (3.3-5.1); Sodium 134 mmol/L (135-145)
[2023-05-28 07:28] VITALS: BP 144/82; PULSE 92; RESP 17; TEMP 36.7; O2SAT 95
--- NOTE | 2023-05-28 07:44 | P.PNOP_ITS ---
Subjective Subjective Date of Service: 05/28/23 Interval history: POD1 s/p LTT TORRES no overnight events c/o itching from the medication denies cp,sob, palpitations Physical Exam Vital Signs: Vital Signs: Last Vital Signs Temp 98.0 F 05/28/23 07:28 Pulse 92 05/28/23 07:28 Resp 17 05/28/23 07:28 BP 126/66 05/28/23 07:28 Pulse Ox 95 05/28/23 07:28 O2 Del Method Nasal Cannula 05/28/23 07:28 O2 Flow Rate 3.0 05/28/23 07:28 BMI result Body Mass Index 33.6 Const: General: cooperative, healthy appearing and no acute distress Resp: Effort & Inspection: normal respiratory effort and able to speak in complete sentences Cardio: Rate: regular rate Peripheral pulses: Peripheral pulses 2+ throughout GI: Palpation (GI): Soft to palpation Skin: General skin exam: no rashes or lesions noted Extrem: Other: bandage clean dry and intact. Shantal intact. No erythema or effusion. Calf supple nontender. Neurovascularly intact. Procedures Date of Service Date of Service: 05/28/23 Progress Note: A&P Assessment and plan (1) History of total left hip arthroplasty: Status: Acute Plan * Continue pain mgmnt * Begin Aspirin for dvt ppx * begin PT for LT JOSE * Dispo planning-Pending PT eval, pain mgmnt Time Spent With Patient Time: Total time managing care of this patient today ____ minutes. Quality Stroke Does the patient have a stroke diagnosis?: No VTE Prior VTE?: No VTE Risk Level:: Surgical - very high VTE Device Contraindication: N/A - Device Ordered VTE Drug Contraindication: N/A - Med Ordered
[2023-05-28] MEDS: carvediloL 12.5 MG TABLET PO ×2 (08:32→20:14)
[2023-05-28] MEDS: diphenhydrAMINE HCL 50 MG/ML VIAL 12.5 MG IVPUSH (08:32)
[2023-05-28] MEDS: Celecoxib 200 MG CAPSULE PO ×2 (08:32→20:14)
[2023-05-28] MEDS: Isosorbide Mononitrate 60 MG TAB.ER.24H PO (08:32)
[2023-05-28] MEDS: Spironolactone 25 MG TABLET PO (08:32)
[2023-05-28] MEDS: Furosemide 20 MG TABLET PO (08:32)
[2023-05-28] MEDS: Docusate Sodium 100 MG CAPSULE PO ×2 (08:39→20:14)
--- NOTE | 2023-05-28 11:49 | P.DS_ITS ---
DS: Providers Provider Date of Service: 05/29/23 Date of admission: 05/27/23 06:06 Primary care physician: Fco Means MD Consults: 05/27/23 11:54 Consult to Hospitalist Routine Comment: Consulting Provider: Hospitalist Reason For Exam: routine medical management DS: Diagnosis Discharge Diagnosis (1) History of total left hip arthroplasty: Status: Acute DS: Summary Hospital Course Hospital Course: The patient underwent a successful Left total knee arthroplasty, they were transferred to PACU and then to the floor to recover. During their stay, their vitals were stable, afebrile at 98.1. Labs were unremarkable, H/H 8.0/24.47. POD 1 they were started on Aspirin 325mg po bid for DVT ppx, they also received Physical Therapy services twice a day. Prior to discharge, their dressing was changed, incision clean dry and intact, new Aquacel dressing applied and the plan was to be discharged home with VNA services. Time Spent with Patient Time attestation: Total time managing care of this patient today ____ minutes. Discharge coordination time: Less than 30 minutes Quality: Safe Use of Opioids Does Pt have an Active Cancer Diagnosis on the Problem List?: No Quality: Stroke Does the patient have a stroke diagnosis?: No Physical Exam Vital Signs: Vital Signs: Last Vital Signs Temp 98.0 F 05/28/23 07:28 Pulse 92 05/28/23 07:28 Resp 17 05/28/23 07:28 BP 126/66 05/28/23 07:28 Pulse Ox 95 05/28/23 07:28 O2 Del Method Nasal Cannula 05/28/23 07:28 O2 Flow Rate 3.0 05/28/23 07:28 BMI result Body Mass Index 33.6 Const: General: cooperative, healthy appearing and no acute distress Resp: Effort & Inspection: normal respiratory effort and able to speak in complete sentences Cardio: Rate: regular rate Peripheral pulses: Peripheral pulses 2+ throughout GI: Palpation (GI): Soft to palpation Skin: General skin exam: no rashes or lesions noted Lesions: no lesions Rashes: no rashes Extrem: Other: left knee dressing is c/d/i. Able to dorsi/plantar flex. Calf is supple and nontender. Sensation intact. Pedal pulse intact. DS: Data Data Completed and Pending Pending studies at discharge: Pending at discharge 05/27/23 09:15 Surgical [PTH] Routine Labs on day of discharge: Laboratory Results - last 24 hr 05/28/23 05:45 WBC 10.5 RBC 2.96 L Hgb 9.3 L Hct 28.6 L MCV 96.6 MCH 31.4 MCHC 32.5 RDW 11.8 Plt Count 213 MPV 11.3 Immature Gran % (Auto) 0.6 H Neut % (Auto) 66.5 Lymph % (Auto) 17.7 L [place] % (Auto) 13.8 H Eos % (Auto) 1.3 Baso % (Auto) 0.1 Lymph # (Auto) 1.9 [place] # (Auto) 1.5 H Eos # (Auto) 0.1 Baso # (Auto) 0.0 Abs Immat Gran (auto) 0.06 H Absolute Neuts (auto) 7.0 Absolute Nucleated RBC 0.000 Nucleated RBC % (auto) 0.0 Sodium 134 L Potassium 4.2 Chloride 106 Carbon Dioxide 21 L Anion Gap 11 L BUN 19 H Creatinine 1.10 Estim Creat Clear Calc 40.1 Estimated GFR 48 Fasting Glucose 140 H Calcium 9.0 Discharge Plan Discharge Anticipated Discharge Date/Time: 05/29/23 15:00 Patient Disposition: Home Health Service Discharge Diagnosis: s/p LTKA Referrals: Shania Key PA-C [Physician Division Leader] - 2 Weeks Fco Means MD [Primary Care Provider] - 1 Week Discharge Medications: New acetaminophen 325 mg Tablet 650 mg PO Q6H PRN (Reason: Pain, Mild (Pain Scale 1-3)) 30 Days Qty: 240 0RF aspirin 325 mg Tablet 325 mg PO Q12H 42 Days Qty: 84 0RF celecoxib 200 mg Capsule 200 mg PO BID 30 Days Qty: 60 0RF docusate sodium 100 mg Capsule 100 mg PO BID 30 Days Qty: 60 0RF oxycodone 5 mg Tablet 5 mg PO Q4H PRN (Reason: Pain, Moderate(Pain Scale 4-6)) 7 Days Qty: 42 0RF Rx Instructions: Partial Fill upon patient request. Continued (ZACHARY) silvia Jenkins See Rx Instructions .ROUTE .MEDSUPPLY Qty: 1 0RF Rx Instructions: Folding front wheeled silvia isosorbide mononitrate 60 mg tablet extended release 24 hr 60 mg PO DAILY carvedilol 12.5 mg tablet 12.5 mg PO BID Rx Instructions: must administer with a meal/food furosemide [Lasix] 40 mg tablet 20 mg PO DAILY spironolactone 25 mg tablet 25 mg PO DAILY Discontinued aspirin 325 mg tablet 325 mg PO DAILY Discharge Orders: Discharge Order (Routine); Ordered 05/29/23 Ordered By: Shania Key Diet: Advance to usual diet Activity on Discharge: Use cane or walker Stand Alone Forms: Patient Portal Discharge page Care Plan Goals: restore fxn to left knee Health Concerns: None Plan of Treatment: Physical Therapy for ROM 0-120, quad strength, gait training. Use walker for ambulation Limit stair climbing, No shower, No tub bath, No driving Continue anticoagulant Keep Aquacel dressing clean, dry and intact. Asprin for DVT ppx x 6 weeks Follow up with orthopedics in 2 weeks Assessment: table for d/c
--- NOTE | 2023-05-28 11:50 | W.MHC.F2F ---
Service Date Service Date: 05/28/23 Encounter Date of encounter: 05/29/23 Reasons for Services Signs and symptoms assessed: Pt. is considered homebound due to recent surgery. Unable to drive, poor balance, poor gait mechanics. S/p LTKA Reason for physical therapy: home safety and mobility, therapeutic exercises, restore joint function, gait/transfer training, assess need for DME and ADL training Homebound: Leaving the home is medically contraindicated at this time without the asist of a device and/or another person due th the listed conditions above and below. Reason homebound: unsteady gait / fall risk, leg weakness, pain with ambulation, pain with transfers, poor balance / fall risk and unable to drive Certification: Based on the above findings, I certify that this patient is confined to the home and needs intermittent alf care, physical therapy and/or speech therapy, or continues to need occupational therapy. The patient is under my care, and I have initiated the establishment of the plan of care. The patient will be followed by a physician who will periodically review the plan of care. Time Spent With Patient Time: Total time managing care of this patient today ____ minutes.
--- NOTE | 2023-05-28 15:09 | MHC.CM.PN ---
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
[2023-05-28 15:31] VITALS: BP 111/69; PULSE 83; RESP 18; TEMP 36.9; O2SAT 95
[2023-05-28 20:00] VITALS: BP 129/76; PULSE 82; RESP 18; TEMP 36.4; O2SAT 97
[2023-05-29] MEDS: Lactated Ringers 1,000 ML 100 ML IVCONT (02:47)
[2023-05-29 03:33] VITALS: BP 137/79; PULSE 74; RESP 16; TEMP 36.7; O2SAT 96
[2023-05-29] MEDS: Acetaminophen 325 MG TABLET 650 MG PO (03:35)
[2023-05-29] MEDS: oxyCODONE HCl Immed Release 5 MG TABLET 10 MG PO (03:35)
[2023-05-29 05:26] LABS: MANUAL DIFF FLAG NO
[2023-05-29 05:36] LABS: Basophils Percent Auto 0.2 % (0-2); Eosinophils Absolute Auto 0.4 X10*3/uL (0.0-0.4); Eosinophils Percent Auto 4.1 % (0-4); Hematocrit 24.7 % (37.0-47.0); Imm Gran Abs Auto 0.09 X10*3/uL (0.00-0.03); Lymphocytes Absolute Auto 1.7 X10*3/uL (1.2-4.9); Lymphocytes Percent Auto 18.9 % (20-40); Mean Corpuscular HGB Conc 32.4 g/dl (31.0-35.0); Mean Corpuscular Volume 98.8 fL (80.0-98.0); Mean Platelet Volume 10.8 fL (9.4-12.3); Monocytes Absolute Auto 1.2 X10*3/uL (0.1-1.2); Monocytes Percent Auto 13.1 % (2-11); Neutrophils Absolute Auto 5.6 x10*3/uL (2.0-8.3); Neutrophils Percent Auto 62.7 % (45-73); Platelet Count 168 X10*3/uL (160-400); Red Cell Distribution Width 11.9 % (11.0-16.0); White Blood Count 8.9 X10*3/uL (4.8-10.8)
[2023-05-29] MEDS: Aspirin 325 MG TABLET PO (05:40)
[2023-05-29 06:00] LABS: Anion Gap 9 (12-20); Blood Urea Nitrogen 14 mg/dL (9-16); Calcium 8.7 mg/dL (8.4-10.2); Carbon Dioxide 24 mmol/L (22-29); Chloride 105 mmol/L (96-108); Estimated Glomerular Filt Rate 56; Glucose Fasting 102 mg/dL (60-99); Potassium 4.1 mmol/L (3.3-5.1); Sodium 134 mmol/L (135-145)
--- NOTE | 2023-05-29 06:51 | HO.POSTANES ---
Post Anesthesia Evaluation Post Anesthesia Evaluation Date of Service: 05/29/23 Vital Signs: Vital Signs Temp Pulse Resp BP Pulse Ox O2 Del Method 05/29/23 03:33 98.1 F 74 16 137/79 96 Room Air 05/28/23 20:00 97.5 F 82 18 129/76 97 Room Air Anesthesia: Spinal and Nerve Block Mental Status: Awake Pain Control: Satisfactory Nausea/Vomiting: None Hydration: Adequate Anesthesia-Related Issues: No Anes. Related Issues
[2023-05-29 07:39] VITALS: BP 138/79; PULSE 64; RESP 20; TEMP 36.2; O2SAT 97
[2023-05-29] MEDS: Spironolactone 25 MG TABLET PO (09:37)
[2023-05-29] MEDS: Docusate Sodium 100 MG CAPSULE PO (09:37)
[2023-05-29] MEDS: 0.9 % Sodium Chloride Flush 3 ML SYRINGE IVFLUSH (09:37)
[2023-05-29] MEDS: Furosemide 20 MG TABLET PO (09:38)
[2023-05-29] MEDS: Celecoxib 200 MG CAPSULE PO (09:38)
[2023-05-29] MEDS: carvediloL 12.5 MG TABLET PO (09:38)
[2023-05-29] MEDS: Isosorbide Mononitrate 60 MG TAB.ER.24H PO (09:38)
== END 2023-05-29 10:00 | disposition home health service (06) | DRG 470 ==
LOC: HO.SSSA 06:06 → HO.S3 10:17
PROVIDERS: Physician Assistant; Admitting Provider Orthopaedic Surgery; PCP Internal Medicine; Visit Provider Orthopaedic Surgery
PROC: 0SRD0J9 Replacement of Left Knee Joint with Synthetic Substitute, Cemented, Open Approach (ICD-10-PCS; CPT 27447; principal; 2023-05-27 07:30)
DX: M17.12 Unilateral primary osteoarthritis, left knee (principal); G89.18 Other acute postprocedural pain; I12.9 Hypertensive chronic kidney disease with stage 1 through stage 4 chronic kidney disease, or unspecified chronic kidney disease; I11.0 Hypertensive heart disease with heart failure; I50.9 Heart failure, unspecified; Z79.899 Other long term (current) drug therapy
CPT/HCPCS: 36415; 73560; 80048; 85025; 86850; 86900; 86901; 87640; 87641; 88305; 88311; 97110; 97116; 97161; C1776; J0690; J1100; J1170; J1200; J2250; J2795; J3370

== ENCOUNTER → 2023-05-27 06:06 | Outpatient (BNV) | payer MEDICARE, SELFPAY | PROVIDERS: Admitting Provider Orthopaedic Surgery; PCP Internal Medicine; Visit Provider Student in an Organized Health Care Education/Training Program | DX: Z96.652 Presence of left artificial knee joint (principal) | CPT/HCPCS: 99222 ==

== ENCOUNTER → 2023-05-27 06:06 | Outpatient (BNV) | payer MEDICARE, SELFPAY | PROVIDERS: Admitting Provider Orthopaedic Surgery; PCP Internal Medicine; Visit Provider Orthopaedic Surgery | DX: Z47.1 Aftercare following joint replacement surgery (principal); Z96.642 Presence of left artificial hip joint | CPT/HCPCS: 27447; 99024; 99212; G0180 ==

== ENCOUNTER 2023-06-13 10:10 | Outpatient (AMB) | payer OTHER, SELFPAY ==
--- NOTE | 2023-06-13 10:19 | MHC.OFFVIS ---
Intake Intake Visit Reasons: P/O LT TKA 05/27/23 DR Miles Note: Sahra 83 yr old female presents today for er P/O visit for her left TKA from 05/27/[address] Oconnell. Patient states she has little pain 4/10 at the moment. States she has completed home P.T. she continues to do exercises on her own. She does not wish to go to outpatient physical therapy. She is no longer taking oxycodone. She takes Tylenol which gives her minimal relief. Allergies amlodipine Allergy (Unknown, Verified 06/13/23 10:39) Unknown apixaban Allergy (Unknown, Verified 06/13/23 10:39) Unknown ferrous gluconate Allergy (Unknown, Verified 06/13/23 10:39) Unknown lisinopril Allergy (Unknown, Verified 06/13/23 10:39) Swelling metoprolol Allergy (Unknown, Verified 06/13/23 10:39) unknown broccoli Allergy (Verified 06/13/23 10:39) Constipation tomato Allergy (Verified 06/13/23 10:39) Itching Medication List - Last Reconciled 06/13/23 by Thomas Oconnell MD acetaminophen 650 mg (2 x 325 mg) PO Q6H PRN 30 days aspirin 325 mg PO Q12H 42 days carvedilol 12.5 mg PO BID celecoxib 200 mg PO BID 30 days docusate sodium 100 mg PO BID 30 days furosemide (Lasix) 20 mg PO DAILY isosorbide mononitrate ER 60 mg PO DAILY [Raised toilet seat As directed] spironolactone 25 mg PO DAILY walker Folding front wheeled walker [facility] Medical History Hx of transfusion of packed red blood cells Hx of varicose veins Internal hemorrhoid DJD (degenerative joint disease) Vitamin D deficiency Esophageal reflux Hearing loss Constipation Hyperlipemia Elevated LFTs Uterine cancer Myocardial infarct Tubular adenoma of colon Diarrhea Anemia Obesity (BMI 35.0-39.9 without comorbidity) Afib Hypertension CHF (congestive heart failure) Surgical History History of esophagogastroduodenoscopy (EGD) Hx of colonoscopy H/O: hysterectomy Family History Mother Uterine cancer Father Lung cancer Sister Lung cancer Social History Household Members: Spouse Housing: House Are you a primary childcare director to a significant other at home: No Do you presently have visiting nurse or other home services: Yes (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 Garcia is doing very well after undergoing left total knee replacement surgery 05/27/2023. Her дмитрий were removed and Steri-Strips placed over incision. She will continue with her physical therapy exercises. She does know to take antibiotics before any dental work. I did give her a prescription for Tylenol with codeine to help with her pain. She will contact me prior to her follow-up appointment in 6 weeks should any questions or concerns arise. Feel free to call me at any time should questions regarding her orthopedic management arise. Medications: New acetaminophen-codeine 300-30 mg 1 tab PO Q6H PRN 40 tabs 0RF pain Coding Level of Care Code Global (13106) Diagnoses Left knee pain M25.562
== END 2023-06-13 10:52 | disposition home or self-care (01) ==
PROVIDERS: PCP Internal Medicine; Visit Provider Orthopaedic Surgery
DX: M25.562 Pain in left knee (principal)
CPT/HCPCS: 99024

== ENCOUNTER → 2023-06-13 10:10 | Outpatient (BNVA) | payer OTHER, SELFPAY | PROVIDERS: PCP Internal Medicine; Visit Provider Orthopaedic Surgery ==

== ENCOUNTER 2023-07-25 10:17 | Outpatient (AMB) | payer OTHER, SELFPAY ==
--- NOTE | 2023-07-25 10:25 | MHC.OFFVIS ---
Intake Intake Visit Reasons: PO - left TKA, 05/27/23 Intake Note: Sahra is a 83 year old female who presents today for a post op appointment s/p LT TKA 05/27/23 . The patient reports mild intermittent discomfort in her left knee. She does not take any medicines for discomfort. She continue with her home stretching program. She has completed formal home physical therapy. Allergies amlodipine Allergy (Unknown, Verified 07/25/23 10:28) Unknown apixaban Allergy (Unknown, Verified 07/25/23 10:28) Unknown ferrous gluconate Allergy (Unknown, Verified 07/25/23 10:28) Unknown lisinopril Allergy (Unknown, Verified 07/25/23 10:28) Swelling metoprolol Allergy (Unknown, Verified 07/25/23 10:28) unknown broccoli Allergy (Verified 07/25/23 10:28) Constipation tomato Allergy (Verified 07/25/23 10:28) Itching Medication List - Last Reconciled 07/25/23 by Thomas Oconnell MD acetaminophen 650 mg (2 x 325 mg) PO Q6H PRN 30 days acetaminophen-codeine 300-30 mg 1 tab PO Q6H PRN aspirin 325 mg PO Q12H 42 days carvedilol 12.5 mg PO BID celecoxib 200 mg PO BID 30 days docusate sodium 100 mg PO BID 30 days furosemide (Lasix) 20 mg PO DAILY isosorbide mononitrate ER 60 mg PO DAILY [Raised toilet seat As directed] spironolactone 25 mg PO DAILY walker Folding front wheeled walker [facility] Medical History Hx of transfusion of packed red blood cells Hx of varicose veins Internal hemorrhoid DJD (degenerative joint disease) Vitamin D deficiency Esophageal reflux Hearing loss Constipation Hyperlipemia Elevated LFTs Uterine cancer Myocardial infarct Tubular adenoma of colon Diarrhea Anemia Obesity (BMI 35.0-39.9 without comorbidity) Afib Hypertension CHF (congestive heart failure) Surgical History History of esophagogastroduodenoscopy (EGD) Hx of colonoscopy H/O: hysterectomy Family History Mother Uterine cancer Father Lung cancer Sister Lung cancer Social History Household Members: Spouse Housing: House Are you a primary primary care sales representative to a significant other at home: No Do you presently have visiting nurse or other home services: Yes (INSURANCE SALESPERSON a few times a week) Alcohol intake: current Alcohol intake frequency: holidays/special occasions only Alcohol type: wine Patient Tobacco Use Status: Never used Tobacco service: No Current occupational status: retired Physical Exam Extrem Other: Left knee examination shows that the surgical incision is well healed, no erythema, full active extension and flexion to 120 degrees, her patella tracks well Assessment & Plan Assessment & Plan (1) Left knee pain: Code(s): M25.562 - Pain in left knee Plan Ms. Garcia is doing very well after undergoing left total knee replacement surgery on 05/27/2023. She will continue with her home exercise program. She does know to take antibiotics before any dental work. She will call me prior to her follow-up appointment in 2 months should any questions or concerns arise. Feel free to call me at any time should questions regarding her orthopedic management arise. Coding Level of Care Code Global (86762) Diagnoses Left knee pain M25.562
== END 2023-07-25 10:32 | disposition home or self-care (01) ==
PROVIDERS: PCP Internal Medicine; Visit Provider Orthopaedic Surgery
DX: M25.562 Pain in left knee (principal)
CPT/HCPCS: 99024

== ENCOUNTER → 2023-07-25 10:17 | Outpatient (BNVA) | payer OTHER, SELFPAY | PROVIDERS: PCP Internal Medicine; Visit Provider Orthopaedic Surgery ==

== ENCOUNTER 2024-03-19 09:49 | Outpatient (AMB) | payer OTHER, SELFPAY ==
--- NOTE | 2024-03-19 09:53 | MHC.OFFVIS ---
Intake Visit Reasons: New prob- RT knee pain Intake Note: Sahra is a 83 year old female who presents with complaints of progressively worsening right knee pain. The patient did undergo left total knee replacement surgery on 05/27/2023. She denies any pain in left knee. She describes her right knee pain as sharp and severe in nature, 06/04. Her right knee pain has gotten worse over the last few years in spite of continued non operative treatments. She has tried Tylenol and anti-inflammatory medicines which gave her minimal relief. She has also done physical therapy exercises which aggravated her pain. She has had injections in the past which gave her only temporary relief. The patient has difficulty walking even short distances because of her pain. At this point her right knee pain is interfering with her activities of daily living and her ability to sleep well through the night. Allergies amlodipine Allergy (Unknown, Verified 03/19/24 09:53) Unknown apixaban Allergy (Unknown, Verified 03/19/24 09:53) Unknown ferrous gluconate Allergy (Unknown, Verified 03/19/24 09:53) Unknown lisinopril Allergy (Unknown, Verified 03/19/24 09:53) Swelling metoprolol Allergy (Unknown, Verified 03/19/24 09:53) unknown broccoli Allergy (Verified 03/19/24 09:53) Constipation tomato Allergy (Verified 03/19/24 09:53) Itching Medication List - Last Reconciled 03/19/24 by Thomas Oconnell MD acetaminophen 650 mg (2 x 325 mg) PO Q6H PRN 30 days acetaminophen-codeine 300-30 mg 1 tab PO Q6H PRN aspirin 325 mg PO Q12H 42 days carvedilol 12.5 mg PO BID celecoxib 200 mg PO BID 30 days docusate sodium 100 mg PO BID 30 days furosemide (Lasix) 20 mg PO DAILY isosorbide mononitrate ER 60 mg PO DAILY [Raised toilet seat As directed] spironolactone 25 mg PO DAILY walker Folding front wheeled walker [facility] Medical History Hx of transfusion of packed red blood cells Hx of varicose veins Internal hemorrhoid DJD (degenerative joint disease) Vitamin D deficiency Esophageal reflux Hearing loss Constipation Hyperlipemia Elevated LFTs Uterine cancer Myocardial infarct Tubular adenoma of colon Diarrhea Anemia Obesity (BMI 35.0-39.9 without comorbidity) Afib Hypertension CHF (congestive heart failure) Surgical History History of total left hip arthroplasty History of esophagogastroduodenoscopy (EGD) Hx of colonoscopy H/O: hysterectomy Family History Mother Uterine cancer Father Lung cancer Sister Lung cancer Social History Household Members: Spouse Housing: House Are you a primary patient care manager to a significant other at home: No Do you presently have visiting nurse or other home services: Yes (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 CHAIN BUSINESS 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 a few times a week) Alcohol intake: current Alcohol intake frequency: holidays/special occasions only Alcohol type: wine Patient Tobacco Use Status: Never used Tobacco service: No Current occupational status: retired Physical Exam Const Other: Well-nourished well-developed very friendly female awake alert and oriented x3 in no acute distress Extrem Other: Bilateral lower extremity examination shows good capillary refill, no skin lesions noted, normal sensation light touch Right knee examination shows a minimal effusion, palpable crepitus with range of motion, pain with range of motion, range of motion from -3 degrees to 115 degrees, no instability Office Procedures Joint Injection/Drain Joint Injection/Drain Primary Site: right knee Prep: site was prepped using aseptic technique Injected: 40 mg of, DepoMedrol and 1% plain lidocaine Procedure: The patient tolerated the procedure well Coding 80835 - Large joint Procedure code (CPT) selection complete Results Reviewed Results Reviewed: X-rays of the patient's right knee show end-stage degenerative joint disease with grade 4 [id number] arthritis, subchondral sclerosis, osteophyte formation, no acute bony abnormalities Assessment & Plan Assessment & Plan (1) Osteoarthritis of right knee: Code(s): M17.11 - Unilateral primary osteoarthritis, right knee Category: Medical Plan Ms. Garcia presents with progressively worsening right knee pain due to end-stage degenerative joint disease. I had a lengthy discussion with the patient regarding the treatment options. The risks and benefits of a right knee cortisone injection were discussed at length with the patient. The patient wished to proceed. She tolerated the injection well. If she does not get lasting relief from the cortisone injection therapy she is considering undergoing right total knee replacement surgery later this year. She will contact my office to pick a surgery date if she chooses to do so. I will see her back 1 week prior to her surgery to answer any final questions that she might have. Feel free to call me at any time should questions regarding her orthopedic management arise. I spent 21 minutes in reviewing the patient's records and imaging studies, seeing the patient and documenting in the medical record. Orders: Orders XR knee RT 3V Today M25.561 - Pain in right knee AMB Joint Injection/Aspiration Today M17.11 - Unilateral primary osteoarthritis, right knee Coding Level of Care Code Est Pt Level 3 (84992) Diagnoses Osteoarthritis of right knee M17.11 CPT Codes Coding - 50864 Large joint: 74085 - Large joint ([id number])
== END 2024-03-19 10:29 | disposition home or self-care (01) ==
PROVIDERS: PCP Internal Medicine; Visit Provider Orthopaedic Surgery
DX: M17.11 Unilateral primary osteoarthritis, right knee (principal)
CPT/HCPCS: 20610; 99213

== ENCOUNTER 2024-03-19 09:49 | Outpatient (REF) | payer OTHER, SELFPAY ==
--- NOTE | ~2024-03-19 | XR_ITS ---
EXAMINATION: XR KNEE, RIGHT CLINICAL INFORMATION: Right knee pain. COMPARISON: Right knee x-rays of 04/04/2023. TECHNIQUE: Three views of the right knee. FINDINGS: Severe narrowing of the medial and moderate narrowing of the lateral knee joint spaces. Subarticular sclerosis and cystic changes are noted in the medial compartment. Tricompartmental small marginal osteophytes are noted. Mild narrowing of the patellofemoral joint space. No evidence of suprapatellar joint effusion. Vascular calcifications. Changes of enthesopathy are noted at the anterosuperior margin of the patella at the insertion of quadriceps tendon. There is no evidence of acute fracture or dislocation. XR/XR knee RT 3V IMPRESSION: Tricompartmental osteoarthritic changes with severe changes in the medial compartment. Overall, there does not appear to be significant interval change compared to last x-ray of 04/04/2023.
== END 2024-03-19 09:50 | disposition home or self-care (01) ==
LOC: HO.HOSX 09:49
PROVIDERS: Visit Provider Orthopaedic Surgery
DX: M17.11 Unilateral primary osteoarthritis, right knee (principal)
CPT/HCPCS: 20610; 73562; 99212; J1010

== ENCOUNTER 2024-12-31 08:43 | Outpatient (REF) | payer OTHER, SELFPAY ==
--- NOTE | ~2024-12-31 | XR_ITS ---
EXAMINATION: XR KNEE, LEFT CLINICAL INFORMATION: M25.562 - Pain in left knee COMPARISON: None available. TECHNIQUE: AP view bilateral knees standing, lateral and patellofemoral views left knee. FINDINGS: RIGHT KNEE: Lateral compartment obscured/off the edge of the film. Moderate to severe arthritis in the medial compartment. Subchondral cystic changes and sclerosis with marginal osteophytes. Normal soft tissues. LEFT KNEE: There is been a total left knee arthroplasty. There is been associated patellar resurfacing. Tibial and femoral components appear intact, well seated, in anatomic alignment. There is no periprosthetic lucency or fracture. The patella appears intact and normally aligned. There is no evidence of significant joint effusion. Soft tissues demonstrate mild vascular calcification. There is mild prepatellar soft tissue swelling. XR/XR knee LT 3V IMPRESSION: 1. LEFT knee demonstrating total arthroplasty without complication. No joint effusion. There is prepatellar soft tissue swelling. 2. Partially imaged RIGHT knee demonstrate moderate to severe osteoarthrosis in the medial compartment. Electronically signed by: Tonny Gunn MD 12/31/2024 09:57 AM EDT
--- OUTSIDE RECORDS SUMMARY | 2025-01-05 09:05 | XMS_ITS | Encounter Summary ---
Author Organization [facility] Address PO [facility] [address] [place] [address] Phone Care Team Providers Care Perforating Machine Operator Name Role Phone Fco Means MD Primary Care Provider [phone] Encounter Details Date Type Department Care Team (Late Contact Info) Description 03/11/2024 Documentation Only [facility] [address] [place] [address] Carmen Solo[place], [place] [address] [place] [address] Social History Tobacco Use Types [...] Visit [facility] [address] [place] [address] Arjun Weaver MD [address] [place] [address] [place] [address] documented as of this encounter Visit Diagnoses Not on filedocumented in this encounter Care Teams Perforating Machine Operator Relationship Specialty Start Date End Date Fco Means MD [address] [id number] PCP - General Internal Medicine 04/16/23 documented as of this encounter
--- OUTSIDE RECORDS SUMMARY | 2025-01-05 09:05 | XMS_ITS | Encounter Summary ---
Author Organization [facility] Address PO [facility] [address] [place] [address] Phone Care Team Providers Care Splicer Apprentice Name Role Phone Fco Means MD Primary Care Provider [phone] Encounter Details Date Type Department Care Team (Late Contact Info) Description 03/20/2024 Documentation Only [facility] [address] [place] [address] [place], [place] [address] [place] [address] Social History Tobacco Use Types [...] Visit [facility] [address] [place] [address] Arjun Weaver MD [address] [place] [address] [place] [address] documented as of this encounter Visit Diagnoses Not on filedocumented in this encounter Care Teams Splicer Apprentice Relationship Specialty Start Date End Date Fco Means MD [address] [id number] PCP - General Internal Medicine 04/16/23 documented as of this encounter
--- OUTSIDE RECORDS SUMMARY | 2025-01-05 09:05 | XMS_ITS | Encounter Summary ---
Author Organization [facility] Address PO [facility] [address] [place] [address] Phone Care Team Providers Care Design Inserter Name Role Phone Fco Means MD Primary Care Provider [phone] Encounter Details Date Type Department Care Team (Late Contact Info) Description 02/20/2024 Documentation Only [facility] [address] [place] [address] [place]ma [place], [place] [address] [place] [address] Social History Tobacco Use Types [...] Visit [facility] [address] [place] [address] Arjun Weaver MD [address] [place] [address] [place] [address] documented as of this encounter Visit Diagnoses Not on filedocumented in this encounter Care Teams Design Inserter Relationship Specialty Start Date End Date Fco Means MD [address] [phone] PCP - General Internal Medicine 04/16/23 documented as of this encounter
--- OUTSIDE RECORDS SUMMARY | 2025-01-05 09:05 | XMS_ITS | Encounter Summary ---
Author Organization [facility] Address PO [facility] [address] [place] [address] Phone Care Team Providers Care Diesel Engine Engineer Name Role Phone Fco Means MD Primary Care Provider Encounter Details Date Type Department Care Team (Late Contact Info) Description 12/02/2023 Documentation Only [facility] [address] [place] [address] Carmen Solo[place], [place] [address] [place] [address] Social History Tobacco Use Types [...] Visit [facility] [address] [place] [address] Arjun Weaver MD [address] [place] [address] [place] [address] documented as of this encounter Visit Diagnoses Not on filedocumented in this encounter Care Teams Diesel Engine Engineer Relationship Specialty Start Date End Date Fco Means MD [address] [phone] PCP - General Internal Medicine 04/16/23 documented as of this encounter
--- OUTSIDE RECORDS SUMMARY | 2025-01-05 09:05 | XMS_ITS | Clinical Summary ---
Author Organization [facility] Address [address] [place] [address] Phone Care Team Providers Care Obiee Architect Name Role Phone Fco Means MD Primary Care Provider [phone] Allergies Active Allergy Reactions Criticality Noted Date [...] Visit [facility] [place], [address] [place] [address] America Gonzales MD Hypertension (Primary [...] Visit [facility] [place], [address] [place] [phone] Arjun Weaver MD [address] [facility] [place] [address] Health Maintenance Due Date Last Done Comments Pneumococcal Vaccine: 50+ Years (3 of 3 - PCV) 07/21/2013 07/21/2012, 10/12/2006 Influenza Vaccine Completed 06/10/2024, 09/24/2017 Hepatitis B Vaccine Aged Out No longe r eligible based on patient's age to complete this topic Insurance [facility] [employer] Dual SNP ([id number]) Care Teams Obiee Architect Relationship Specialty Start Date End Date Fco Means MD 175 [facility] [address] [place] [address] PCP - General Internal Medicine 04/16/23
--- OUTSIDE RECORDS SUMMARY | 2025-01-05 09:05 | XMS_ITS | Encounter Summary ---
Author Organization [facility] [place], Address [address] [address] Phone Care Team Providers Care [employer] Name Role Phone Fco Means MD Primary Care Provider [phone] Encounter Details Date Type Department Care Team (Late st Contact Info) Description 04/17/2023 Documentation Only [facility] [address] [place] [address] Fco Means MD [address] [place] [address] Social History Tobacco Use Types Packs/Day Years [...] [facility] [address] [place] [address] Arjun Weaver MD [address] [place] [address] [place] [address] documented as of this encounter Visit Diagnoses Not on filedocumented in this encounter Care Teams [employer] Relationship Specialty Start Date End Date Fco Means MD [address] [address] PCP - General Internal Medicine 04/16/23 documented as of this encounter
== END 2024-12-31 08:44 | disposition home or self-care (01) ==
LOC: HO.HOSX 08:43
PROVIDERS: Visit Provider Orthopaedic Surgery
DX: M25.562 Pain in left knee (principal); M25.561 Pain in right knee; Z96.652 Presence of left artificial knee joint
CPT/HCPCS: 73562; 99212

== ENCOUNTER 2024-12-31 09:38 | Outpatient (AMB) | payer OTHER, SELFPAY ==
[2024-12-31 09:47] VITALS: BMI 32.9
--- NOTE | 2024-12-31 09:47 | MHC.OFFVIS ---
Vital Signs 12/31/24 09:47 Height 5 ft 2 in Weight 180 lb BMI 32.9 Intake Visit Reasons: Right knee pain Intake Note: Sahra is a 84 year old female who presents with complaints of progressively worsening right knee pain. The patient did undergo left total knee replacement surgery on 05/27/2023. She denies any pain in left knee. She describes her right knee pain as sharp and severe in nature, 06/04. Her right knee pain has gotten worse over the last few years in spite of continued non operative treatments. She has tried Tylenol and anti-inflammatory medicines which gave her minimal relief. She has also done physical therapy exercises which aggravated her pain. She has had injections in the past which gave her only temporary relief. The patient has difficulty walking even short distances because of her pain. At this point her right knee pain is interfering with her activities of daily living and her ability to sleep well through the night. Allergies amlodipine Allergy (Unknown, Verified 12/31/24 09:48) Unknown apixaban Allergy (Unknown, Verified 12/31/24 09:48) Unknown ferrous gluconate Allergy (Unknown, Verified 12/31/24 09:48) Unknown lisinopril Allergy (Unknown, Verified 12/31/24 09:48) Swelling metoprolol Allergy (Unknown, Verified 12/31/24 09:48) unknown broccoli Allergy (Verified 12/31/24 09:48) Constipation tomato Allergy (Verified 12/31/24 09:48) Itching Medication List - Last Reconciled 12/31/24 by Thomas Oconnell MD acetaminophen 650 mg (2 x 325 mg) PO Q6H PRN 30 days acetaminophen-codeine 300-30 mg 1 tab PO Q6H PRN aspirin 325 mg PO Q12H 42 days carvedilol 12.5 mg PO BID celecoxib 200 mg PO BID 30 days docusate sodium 100 mg PO BID 30 days furosemide (Lasix) 20 mg PO DAILY isosorbide mononitrate ER 60 mg PO DAILY [Raised toilet seat As directed] spironolactone 25 mg PO DAILY walker Folding front wheeled walker [facility] Medical History Hx of transfusion of packed red blood cells Hx of varicose veins Internal hemorrhoid DJD (degenerative joint disease) Vitamin D deficiency Esophageal reflux Hearing loss Constipation Hyperlipemia Elevated LFTs Uterine cancer Myocardial infarct Tubular adenoma of colon Diarrhea Anemia Obesity (BMI 35.0-39.9 without comorbidity) Afib Hypertension CHF (congestive heart failure) Surgical History History of total left hip arthroplasty History of esophagogastroduodenoscopy (EGD) Hx of colonoscopy H/O: hysterectomy Family History Mother Uterine cancer Father Lung cancer Sister Lung cancer Social History Household Members: Spouse Housing: House Are you a primary personal care worker to a significant other at home: No Do you presently have visiting nurse or other home services: Yes ([employer] a few times a week) Alcohol intake: current Alcohol intake frequency: holidays/special occasions only Alcohol type: wine Patient Tobacco Use Status: Never used Tobacco service: No Current occupational status: retired Physical Exam Vital Signs: BMI result Body Mass Index 32.9 Const Other: Well-nourished well-developed very friendly female awake alert and oriented x3 in no acute distress Extrem Other: Bilateral lower extremity examination shows good capillary refill, no skin lesions noted, normal sensation light touch Right knee examination shows a minimal effusion, palpable crepitus with range of motion, pain with range of motion, range of motion from -3 degrees to 115 degrees, no instability Results Reviewed Results Reviewed: X-rays of the patient's right knee show end-stage degenerative joint disease with grade 4 [id number] arthritis, subchondral sclerosis, osteophyte formation, no acute bony abnormalities X-rays of the patient's left knee show a total knee arthroplasty in good position with no signs of loosening, no acute bony abnormalities Assessment & Plan Assessment & Plan (1) Right knee pain: Code(s): M25.561 - Pain in right knee Category: Medical Plan Ms. Garcia continues to do well after undergoing left total knee replacement surgery on 05/27/2023. She does have progressively worsening right knee pain due to end-stage degenerative joint disease. I had a lengthy discussion with the patient regarding the treatment options. At this point she has failed continued non operative treatments. The risks and benefits of right total knee replacement surgery were discussed at length with the patient. The patient wishes to proceed with surgery. She will be scheduled for next available date. I did give her a prescription for Celebrex to help with her discomfort in the meantime. She will follow-up as instructed. Feel free to call me at any time should questions regarding her orthopedic management arise. I spent 22 minutes in reviewing the patient's records and imaging studies, seeing the patient and documenting in the medical record. Orders: Orders XR knee LT 3V Today M25.562 - Pain in left knee Medications: New celecoxib (Celebrex) 200 mg PO DAILY PRN 30 caps 3RF pain Coding Level of Care Code Est Pt Level 3 (74762) Complex EM visit Add On G2211 Diagnoses Right knee pain M25.561
--- OUTSIDE RECORDS SUMMARY | 2024-12-31 10:24 | XMS_ITS | Encounter Summary ---
Author Organization [facility] Address [address] [facility] [address] [place] [address] Phone Care Team Providers Care Senior Engineering Manager Name Role Phone Fco Means MD Primary Care Provider [phone] Encounter Details Date Type Department Care Team (Late Contact Info) Description 03/20/2024 Documentation Only [facility] [address] [place] [address] [place], [place] [address] [place] [address] Social History Tobacco Use Types Packs/Day Years Used Date Smoking Tobacco: Never Assessed Alcohol Use Standard Drinks/Week Comments Yes 1 (1 standard drink = 0.6 oz pur e alcohol) Occassional Comments Unknown Sex and Gender Information Value Date Recorded Sex Assigned at Not on file Legal Sex Female 10:39 AM EDT Gender Identity Not on file Sexual Orientation Not on file documented as of this encounter Plan of Treatment Upcoming Encounters Date Type Department Care Team (Late Contact Info) Description 10/27/2025 2:15 PM EST Office Visit [facility] [address] [place] [address] Arjun Weaver MD [address] [place] [address] [place] [address] documented as of this encounter Visit Diagnoses Not on filedocumented in this encounter Care Teams Senior Engineering Manager Relationship Specialty Start Date End Date Fco Means MD [address] [id number] PCP - General Internal Medicine 04/16/23 documented as of this encounter
--- OUTSIDE RECORDS SUMMARY | 2024-12-31 10:24 | XMS_ITS | Clinical Summary ---
Author Organization [facility] Address [address] [place] [address] Phone Care Team Providers Care Director Summer Sessions Name Role Phone Fco Means MD Primary Care Provider [phone] Allergies Active Allergy Reactions Criticality Noted Date Comments Amlodipine 02/22/2016 No reaction documented. Apixaban 10/08/2016 No reaction documented. Broccoli 05/14/2023 Ferrous Gluconate 06/27/2017 No reaction documented. Lisinopril 01/18/2016 No reaction documented. Metoprolol 03/14/2016 No reaction documented. Tomato 05/14/2023 Medications aspirin 325 mg tablet Take 1 Tablet by mouth daily. 4 Active cyproheptadine (PERIACTIN) 4 mg tablet Take 1 Tab by mouth 3 times daily as needed (for itching) for up to 90 days. 0 Active diclofenac (Voltaren Arthritis Pain) 1 % topical gel Place 1 Inch onto the skin daily. 0 Active fluticasone propionate (FLONASE) 50 mcg/actuation nasal spray 2 Sprays by Nasal route daily. 3 Active furosemide (LASIX) 40 mg tablet Take 1 Tablet by mouth 2 times daily. 3 Active hydrOXYzine HCL (ATARAX) 25 mg tablet Take 1 Tab by mouth 3 times daily as needed for Itching. 0 Active incontinence pad, liner, disp pad Incontinence Supply Disposable ([facility] Incontinence Pads) Misc 1 Each by Does not apply route 3 times daily. 4 Active tobramycin-dexA METHasone (TOBRADEX) ophthalmic suspension Administer 1 drop into both eyes 2 (two) times a day. 5 Active spironolactone (ALDACTONE) 25 mg tablet Take 1 tablet (25 mg total) by mouth 1 (one) time each day. 90 tablet 1 5 Active isosorbide mononitrate (IMDUR) 60 mg 24 hr tablet Take 1 tablet (60 mg total) by mouth 1 (one) time each day. 90 tablet 5 Active carvediloL (COREG) 12.5 mg tablet TAKE 1 TABLET BY MOUTH TWICE DAILY WITH MEALS 180 tablet 1 5 Active Active Problems Problem Noted Date Diagnosed Date Epigastric pain 05/13/2019 Itching 03/24/2019 Anemia 01/05/2019 Hypertension 01/05/2019 Severe obesity (BMI 35.0-39. 9) with comorbidity ([facility] V24, [facility] V28) 01/05/2019 Diarrhea 12/23/2018 History of NM (myocardial infarction) 12/23/2018 Tubular adenoma of colon 12/23/2018 Elevated liver function tests 03/12/2018 Atrial fibrillation ([facility] V24, [facility] V28) 1 08/27/2016 CHF (congestive heart failure) ([facility] V24, [facility] V28) 04/09/2017 Hyperlipidemia 10/01/2016 Constipation 09/05/2016 Hearing loss 08/02/2016 Esophageal reflux 07/04/2016 Vitamin D deficiency 11/17/2014 History of varicose veins 10/20/2013 DJD (degenerative joint disease) of knee 013 Internal hemorrhoids 04/15/2012 Encounters Date Type Department Care Team Description 10/22/2024 2:20 PM EST Consult Gastroenterology - [place] [address] [place] [address] Chery Rendon NP Chronic constipation (Primary Dx); Screening for colorectal cancer from Last 3 Months Immunizations Name Administration Dates Next Due Influenza trivalent, 0.5mL (Fluad) 65yo and olde r 06/10/2024 Pneumococcal polysaccharide 23 valent (Pneumovax 23) 2yo and older 07/21/2012 Surgical History Surgery Date Site/Laterality Comments COLONOSCOPY 06/21/2015 PROCEDURE: HISTORICAL COLONOSCOPY; COMMENT: internal hemorrhoids, tubular adenoma with polypectomy; repeat 5 yrs ESOPHAGOGASTRODUODENOSCOPY 03/02/2017 PROCEDURE: CT ESOPHAGOGASTRODUODENOSCOPY TRANSORAL DIAGNOSTIC; COMMENT: mucosa suggestive of short segment Stacy's Esophagus; reflux esophagitis OTHER SURGICAL HISTORY PROCEDURE: CT RAD ABDL HYSTERECTOMY W/BI PELVIC LMPHADENECTOMY Medical History Medical History Date Comments Severe obesity (BMI 35.0-39. 9) with comorbidity ([facility] V24, [facility] V28) 01/05/2019 DX:Severe obesi ty (BMI 35.0- 39.9) with comorbidity ([facility]) Hypertension 01/05/2019 DX:Hypertension Anemia 01/05/2019 DX:Anemia Atrial fibrillation ([facility] V24, [facility] V28) 06/27/2017 DX:Atrial fibrillation ([facility]) CHF (congestive heart failur e) ([facility] V24, [facility] V28) 04/09/2017 DX:CHF (congestive heart ben lure) ([facility]) Constipation 09/05/2016 DX:Constipation Diarrhea 12/23/2018 DX:Diarrhea DJD (degenerative joint dise ase) of knee 01/21/2013 DX:DJD (degenerative joint d isease) of knee Elevated liver function tests 03/12/2018 DX :Elevated liver function tests Esophageal reflux 07/04/2016 DX:Esophageal reflux Hearing loss 08/02/2016 DX:Hearing loss History of NM (myocardial infarction) 12/23/2018 DX:History of NM (myocardial infarction) History of uterine cancer 12/23/2018 DX:His tory of uterine cancer Hyperlipidemia 10/01/2016 DX:Hyperlipidemi a Internal hemorrhoids 04/15/2012 DX:Internal hemorrhoids Tubular adenoma of colon 12/23/2018 DX:Tubu lar adenoma of colon Varicose veins 10/20/2013 DX:Varicose vein s Vitamin D deficiency 11/17/2014 DX:Vitamin D deficiency Family History Medical History Relation Name Comments Lung cancer Father Uterine cancer Mother Lung cancer Sister 1 Other cancer Sister 2 unknown primary Relation Name Status Comments Father Mother Sister 1 Sister 2 Alive Social History Tobacco Use Types Packs/Day Years Used Date Smoking Tobacco: Never Smokeless Tobacco: Never Alcohol Use Standard Drinks/Week Comments Yes 0 (1 standard drink = 0.6 oz pur e alcohol) Comments Unknown Sex and Gender Information Value Date Recorded Sex Assigned at Not on file Legal Sex Female 5:23 PM EST Gender Identity Not on file Sexual Orientation Not on file Obstetrics History Last Filed Vital Signs Vital Sign Reading Time Taken Comments Blood Pressure 117/77 10/22/2024 2:07 PM EST Pulse 82 10/22/2024 2:07 PM EST Temperature 36.4 ??C (97.6 ??F) 07/02/2024 10:[address] Respiratory Rate - - Oxygen Saturation 96% 10/22/2024 2:07 PM EST Inhaled Oxygen Concentration - - Weight 85.3 kg (188 lb) 10/22/2024 2:07 PM EST Height 157.5 cm (5' 2 ) 10/22/2024 2:07 PM EST Body Mass Index 34.39 10/22/2024 2:07 PM EST Plan of Treatment Upcoming Encounters Date Type Department Care Team (Late st Contact Info) Description 01/19/2025 9:30 AM EDT Office Visit Internal Medicine - [place] [address] [facility] [address] [place] [phone] Fco Means MD [address] [facility] [address] [place] [address] Health Maintenance Due Date Last Done Comments DTaP,Tdap,and Td Vaccines (1 - Tdap) 1959 RSV Immunization Adult Patients (1 - 1-dose 75+ series) 2016 Depression Screening 08/04/2022 Falls Risk Assessment 08/04/2022 Medicare Annual Wellness Visit 08/04/2022 Osteoporosis Screening (Bone Density Screening) 08/04/2022 Social Influencers of Health Screening 08/04/2022 Hypertension/CHF/CAD Annual BMP Blood Test 03/14/2024 03/14/2023 COVID-19 Vaccine ( season) 2024 07/04/2022, 01/18/2022, 05/23/2021, Additional history exists Colorectal Cancer Screening: Colonoscopy 06/15/2024 06/15/2019 Cholesterol Screening (Lipid Panel) 03/14/2028 03/14/2023 Pneumococcal Vaccine: 50+ Years Completed 11/27/2022, 07/21/2012, 10/12/2006 Zoster Vaccines Completed 02/22/2023, 11/27/2022 Influenza Vaccine Completed 06/10/2024, , 07/25/2021, Additional history exists HIB Vaccines Aged Out No longer eligi ble based on patient's age to complete this topic HPV Vaccines Aged Out No longer eligi ble based on patient's age to complete this topic Hepatitis A Vaccines Aged Out No long er eligible based on patient's age to complete this topic Hepatitis B Vaccines Aged Out No long er eligible based on patient's age to complete this topic IPV Vaccines Aged Out No longer eligi ble based on patient's age to complete this topic MMR Vaccines Aged Out No longer eligi ble based on patient's age to complete this topic Meningococcal ACWY Vaccine Aged Out N o longer eligible based on patient's age to complete this topic Meningococcal B Vaccine Aged Out No l onger eligible based on patient's age to complete this topic RSV Immunization Patients Under 20 months Aged Out No longer eligible based on patient's age to complete this topic Varicella Vaccines Aged Out No longer eligible based on patient's age to complete this topic Procedures Procedure Name Priority Date/Time Associated Diagnosis Comments ANNUAL BMP BLOOD TEST Routine 03/14/2023 LIPID PANEL Routine 03/14/2023 COLONOSCOPY Routine 06/15/2019 from Last 3 Months or Most Recently Relevant to Health Maintenance Results * Annual BMP Blood Test (03/14/2023) Pathologist [facility] Annual BMP Blood Test abstracted Historical Provider HEALTH MAINTENANCE Final Result * Lipid panel (03/14/2023) Pathologist [facility] LDL/HDL Ratio 2 0 - 4 Triglycerides 81 0 - 150 mg/dL Cholesterol 188 0 - 200 mg/dL HDL 77 >=40 mg/dL LDL Cholesterol 95 0 - 100 mg/dL Blood Venous blood specimen / Unknown Historical Provider LAB BLOOD ORDERABLES Beverly l Result * Colonoscopy (06/15/2019) HM Colonoscopy no interpretatio n, abstracte Anatomical Region Laterality Modality Other us Historical Provider HEALTH MAINTENANCE Final Result from Last 3 Months or Most Recently Relevant to Health Maintenance Insurance [employer] MEDICARE Member Subscriber Plan / Payer (Ef fective 2016-Present) Name:GarciaArley wintersetta Relation to Subscriber:Self Name:Sahra Garcia Payer ID:[id number] Group ID:[id number] Type:Not on file Address: [place] [address] [address] [address] Care Teams Director Summer Sessions Relationship Specialty Start Date End Date Fco Means MD [address] [place] [id number] PCP - General Internal Medicine 10/14/24
--- OUTSIDE RECORDS SUMMARY | 2024-12-31 10:24 | XMS_ITS | Encounter Summary ---
Author Organization [facility] Address [address] [facility] [address] [place] [address] Phone Care Team Providers Care Financial Reporting Accountant Name Role Phone Fco Means MD Primary Care Provider [phone] Encounter Details Date Type Department Care Team (Late Contact Info) Description 03/11/2024 Documentation Only [facility] [address] [place] [address] [place], [place] [address] [place] [address] Social History Tobacco Use Types [...] Visit [facility] [address] [place] [address] Arjun Weaver MD [address] [place] [address] [place] [address] documented as of this encounter Visit Diagnoses Not on filedocumented in this encounter Care Teams Financial Reporting Accountant Relationship Specialty Start Date End Date Fco Means MD [address] [phone] PCP - General Internal Medicine 04/16/23 documented as of this encounter
--- OUTSIDE RECORDS SUMMARY | 2024-12-31 10:24 | XMS_ITS | Clinical Summary ---
Author Organization [facility] Address [address] [place] [address] Phone Care Team Providers Care Landing Man Name Role Phone Fco Means MD Primary Care Provider [phone] Allergies Active Allergy Reactions Criticality Noted Date Comments Warfarin Hives 11/27/2023 Apixaban Itching 11/27/2023 Lisinopril Swelling 11/27/2023 Medications EQ Aspirin 325 MG tablet Take 325 mg by mouth 1 (one) time each day 09/03/2023 Active carvedilol (COREG) 12.5 MG tablet Take 12.5 mg by mouth in the morning and 12.5 mg in the evening. Take with meals. Active furosemide (LASIX) 40 MG tablet 09/18/2023 Active isosorbide mononitrate (IMDUR) 60 MG 24 hr tablet Take 60 mg by mouth 1 (one) time each day 08/14/2023 Active spironolactone (ALDACTONE) 25 MG tablet Take 25 mg by mouth 1 (one) time each day 08/14/2023 Active Active Problems Problem Noted Date Diagnosed Date Chronic kidney disease 02/13/2024 Hypertension 11/19/2023 Cardiomyopathy 11/19/2023 Encounters Date Type Department Care Team Description 10/28/2024 3:00 PM EST Office Visit [facility] [place], [address] [place] [address] America Gonzales MD Hypertension (Primary Dx); Stage 3a chronic kidney disease (HCC) from Last 3 Months Social History Tobacco Use Types Packs/Day Years Used Date Smoking Tobacco: Never Assessed Alcohol Use Standard Drinks/Week Comments Yes 1 (1 standard drink = 0.6 oz pur e alcohol) Occassional Comments Unknown Sex and Gender Information Value Date Recorded Sex Assigned at Not on file Legal Sex Female 10:39 AM EDT Gender Identity Not on file Sexual Orientation Not on file Last Filed Vital Signs Vital Sign Reading Time Taken Comments Blood Pressure 130/80 10/28/2024 2:36 PM EST Pulse - - Temperature - - Respiratory Rate - - Oxygen Saturation - - Inhaled Oxygen Concentration - - Weight - - Height - - Body Mass Index - - Plan of Treatment Upcoming Encounters Date Type Department Care Team (Late st Contact Info) Description 10/27/2025 2:15 PM EST Office Visit [facility] [place], [address] [place] [phone] Arjun Weaver MD [address] [facility] [place] [phone] Health Maintenance Due Date Last Done Comments Pneumococcal Vaccine: 50+ Years (3 of 3 - PCV) 07/21/2013 07/21/2012, 10/12/2006 Influenza Vaccine Completed 06/10/2024, 09/24/2017 Hepatitis B Vaccine Aged Out No longe r eligible based on patient's age to complete this topic Insurance [facility] One [employer] Dual SNP ([id number]) Care Teams Landing Man Relationship Specialty Start Date End Date Fco Means MD 175 [facility] [address] [place] [address] PCP - General Internal Medicine 04/16/23
--- OUTSIDE RECORDS SUMMARY | 2024-12-31 10:24 | XMS_ITS | Encounter Summary ---
Author Organization [facility] Address [address] [facility] [address] [place] [address] Phone Care Team Providers Care Engraver Name Role Phone Fco Means MD Primary Care Provider [phone] Encounter Details Date Type Department Care Team (Late Contact Info) Description 02/20/2024 Documentation Only [facility] [address] [place] [address] [place]ma [place], [place] [address] [place] [address] Social History Tobacco Use Types [...] Visit [facility] [address] [place] [address] Arjun Weaver MD [address] [place] [address] [place] [address] documented as of this encounter Visit Diagnoses Not on filedocumented in this encounter Care Teams Engraver Relationship Specialty Start Date End Date Fco Means MD [address] [phone] PCP - General Internal Medicine 04/16/23 documented as of this encounter
--- OUTSIDE RECORDS SUMMARY | 2024-12-31 10:24 | XMS_ITS | Encounter Summary ---
Author Organization [facility] Address [address] [facility] [address] [place] [address] Phone Care Team Providers Care Asbestos Abatement Worker Name Role Phone Fco Means MD Primary Care Provider [phone] Encounter Details Date Type Department Care Team (Late Contact Info) Description 12/02/2023 Documentation Only [facility] [address] [place] [address] [place], [place] [address] [place] [address] Social History Tobacco Use Types [...] Visit [facility] [address] [place] [address] Arjun Weaver MD [address] [place] [address] [place] [address] documented as of this encounter Visit Diagnoses Not on filedocumented in this encounter Care Teams Asbestos Abatement Worker Relationship Specialty Start Date End Date Fco Means MD [address] [phone] PCP - General Internal Medicine 04/16/23 documented as of this encounter
--- OUTSIDE RECORDS SUMMARY | 2024-12-31 10:24 | XMS_ITS | Encounter Summary ---
Author Organization [facility] [place], Address [address] [address] Phone Care Team Providers Care Health Care Marketing Specialist Name Role Phone Fco Means MD Primary Care Provider [phone] Encounter Details Date Type Department Care Team (Late st Contact Info) Description 04/17/2023 Documentation Only [facility] [address] [place] [phone] Fco Means MD [address] [place] [id number] Social History Tobacco Use Types Packs/Day Years Used Date Smoking Tobacco: Never Assessed Comments Unknown Sex and Gender Information Value Date Recorded Sex Assigned at Not on file Legal Sex Female 10:39 AM EDT Gender Identity Not on file Sexual Orientation Not on file documented as of this encounter Plan of Treatment Upcoming Encounters Date Type Department Care Team (Late st Contact Info) Description 10/27/2025 2:15 PM EST Office Visit [facility] [address] [place] [address] Arjun Weaver MD [address] [place] [address] [place] [phone] documented as of this encounter Visit Diagnoses Not on filedocumented in this encounter Care Teams Health Care Marketing Specialist Relationship Specialty Start Date End Date Fco Means MD [address] [address] PCP - General Internal Medicine 04/16/23 documented as of this encounter
== END 2024-12-31 10:14 | disposition home or self-care (01) ==
LOC: HO.HOS 09:39
PROVIDERS: PCP Internal Medicine; Visit Provider Orthopaedic Surgery
DX: M25.561 Pain in right knee (principal)
CPT/HCPCS: 99214; G2211

== ENCOUNTER → 2024-12-31 09:41 | Outpatient (BNV) | payer OTHER, SELFPAY | PROVIDERS: Visit Provider Radiology Diagnostic Radiology | DX: R22.42 Localized swelling, mass and lump, left lower limb (principal); Z96.652 Presence of left artificial knee joint | CPT/HCPCS: 73562 ==